=== PATIENT | male | born 1980 | race Caucasian/White ===

== ENCOUNTER 2021-03-26 12:34 | Inpatient (IN) ==
[2021-03-26] MEDS ORDERED: SODIUM CHLORIDE 0.9% 1000ML 2,000 ML IV ONE ×2 (12:56→14:37)
[2021-03-26] MEDS ORDERED: MoRPHine SULFATE 10 MG/ML CARP/VIAL IV STA (12:56)
[2021-03-26] MEDS ORDERED: ONDANSETRON INJ 2 MG/ML 2 ML VIAL IV STA (12:56)
--- NOTE | 2021-03-26 13:00 | Emergency Department Note ---
Impression & Plan Peritonitis, acute generalized, Perforated abdominal viscus, Diverticulitis, Small bowel obstruction, Abdominal pain, Sepsis ED Provider Note NAME: VICTOR HUGO PINO AGE: 40 SEX: M : 1980 ARRIVES VIA: Walk-In INFORMANT: Patient ED PROVIDER(S): Phani Mcmullen DO CHIEF COMPLAINT: Right lower quadrant abdominal pain HPI: Patient is a 40-year-old male who presents ER for right lower quadrant abdominal pain. Patient notes that this started this morning. Describes the pain as a 10 out of 10 sharp stabbing. He admits to urinary frequency and dysuria. History of a previous abdominal hernia repair about 10 years ago. Still has gallbladder and appendix. No history of kidney stones. No other exacerbating or remitting factors. Notes the pain will improve slightly down to a 9 out of 10 but otherwise still very persistent. Denies any chest pain or sh ortness of breath. No cough or runny nose. ROS: See above HPI for pertinent positives & negatives. A total of 10 systems reviewed and were otherwise negative. PAST MEDICAL HISTORY:See Below PAST SURGICAL HISTORY:See Below FAMILY HISTORY:See Below SOCIAL HISTORY:See Below HOME MEDICATIONS:See Below ALLERGIES:See Below VITALS:See Below PHYSICAL EXAMINATION: GENERAL: Sitting up in bed, alert, well appearing, well nourished, no distress, non-toxic EYE EXAM: normal conjunctiva. OROPHARYNX: no exudate, no erythema, lips, buccal mucosa, and tongue normal and mucous membranes are moist NECK: supple, no nuchal rigidity, no adenopathy, non-tender LUNGS: Clear to auscultation. Normal chest wall mechanics HEART: no murmurs, S1 normal and S2 normal ABDOMEN: abdomen soft, tenderness in the right lower quadrant, + rebound or guarding. UPPER EXTREMITIES: upper extremities are grossly normal. LOWER EXTREMITIES: No pitting edema. NEURO EXAM: Normal sensorium, cranial nerves II-XII grossly intact, normal speech, no gross weakness of arms, no gross weakness of legs. MEDICAL DECISION MAKING: Patient is a 40-year-old male who presents the ER for abdominal pain. IV was established blood work was obtained. Labs show a leukocytosis of 14,000. No significant anemia. BMP with slightly elevated glucose. LFTs and lipase is unremarkable. Covid was negative. CT abdomen pelvis shows free air/pneumoperitoneum with significant stranding and inflammation in the right lower quadrant. There is questionable abscess and small bowel obstruction. Patient was given IV fluids and IV antibiotics. He was updated bedside. He was given IV narcotics. Discussed with general surgery and taken emergently to the OR. He eventually did have a fever which presented later after admission. Triage Nursing notes reviewed. Limited review of prior medical records performed Vital Signs: reviewed and remarkable for no significant abnormalities Differential diagnosis: Differential diagnoses includes but is not limited to gastritis, peptic ulcer disease, GERD, gallbladder disease, pancreatitis, small bowel obstruction, acute coronary syndrome, pericarditis, ischemic bowel, irritable bowel disease, irritable bowel syndrome, appendicitis, diverticulitis, malignancy, hernia, urinary tract infection, torsion, perforation, trauma, infectious. ER treatment provided: See below Diagnostics interpreted by me: ECG: none Cardiac Monitoring: An order was placed for continuous cardiac monitoring. The monitor shows a rate of 123 with sinus rhythm. Laboratory studies: As stated above and show below. Imaging studies: Perforated abdominal viscus on CT Consultation(s): Discussed with Dr. Campbell from general surgery who took the patient to the OR Procedures: none Critical Care: I have personally spent 40 minutes of critical care time in the direct management of this patient. This includes bedside care, interpretation of diagnostic studies, and testing, discussion with consultants, patient, and f amily members, and other required patient management activities. This 40 minutes is in excess of all separately billable procedures. Past Med/Surg History Medical History (Updated 03/26/21 @ 17:06 by Phani Mcmullen DO) Hyperlipidemia Hypertension Surgical History S/P gastric bypass S/P hernia repair Family History Father Diabetes Mother Hypertension Social History Smoking Status: Never smoker Hx Alcohol Use: Yes Preferred Language: Salvadorean marital status: current occupational status: employed Feels Safe at Home: Yes Allergies Allergies Allergy/AdvReac Type Severity Reaction Status Date / Time No Known Allergies Allergy Verified 03/26/21 14:15 Home Meds Home Medications Medication Instructions Recorded Confirmed acetaminophen [Tylenol Extra 2,000 mg PO Q6 PRN 03/26/21 03/26/21 Strength] rosuvastatin 10 mg PO DAILY 03/26/21 03/26/21 Results & Data (ED) Vital Signs Vital Signs - 24 hr 03/26/21 12:36 03/26/21 13:22 03/26/21 13:30 Temperature 36.4 C L Temperature Source Temporal Artery Scan Pulse Rate 100 H 102 H 101 H Pulse Rate [Left Finger] Pulse Rate from SpO2 Sensor 102 H 101 H Pulse Rhythm [Left Finger] Pulse Strength [Left Finger] Respiratory Rate 20 28 H 26 H Respiratory Effort / Characteristics Respiratory Depth Respiratory Pattern Blood Pressure 114/78 124/81 128/88 Blood Pressure [Left Arm] Blood Pressure Mean 90 95 101 Blood Pressure Mean [Left Arm] Blood Pressure Position Sitting Blood Pressure Position [Left Arm] Pulse Oximetry 97 96 94 Oxygen Delivery Method Room Air Room Air Room Air Sepsis Recent Fever Within 48 Hours No Sepsis New/Unexplained Change in Mental Status No Sepsis Action Taken by Nursing No Action Required 03/26/21 14:31 03/26/21 14:32 03/26/21 15:00 Temperature Temperature Source Pulse Rate Pulse Rate [Left Finger] Pulse Rate from SpO2 Sensor 113 H 113 H 117 H Pulse Rhythm [Left Finger] Pulse Strength [Left Finger] Respiratory Rate 24 Respiratory Effort / Characteristics Respiratory Depth Respiratory Pattern Blood Pressure 138/82 Blood Pressure [Left Arm] Blood Pressure Mean 100 Blood Pressure Mean [Left Arm] Blood Pressure Position Blood Pressure Position [Left Arm] Pulse Oximetry 95 95 97 Oxygen Delivery Method Room Air Sepsis Recent Fever Within 48 Hours Sepsis New/Unexplained Change in Mental Status Sepsis Action Taken by Nursing 03/26/21 15:01 03/26/21 15:02 03/26/21 15:30 Temperature Temperature Source Pulse Rate 113 H Pulse Rate [Left Finger] Pulse Rate from SpO2 Sensor 118 H 117 H Pulse Rhythm [Left Finger] Pulse Strength [Left Finger] Respiratory Rate 24 Respiratory Effort / Characteristics Respiratory Depth Respiratory Pattern Blood Pressure 136/84 131/89 Blood Pressure [Left Arm] Blood Pressure Mean 101 103 Blood Pressure Mean [Left Arm] Blood Pressure Position Blood Pressure Position [Left Arm] Pulse Oximetry 97 97 Oxygen Delivery Method Sepsis Recent Fever Within 48 Hours Sepsis New/Unexplained Change in Mental Status Sepsis Action Taken by Nursing 03/26/21 15:31 03/26/21 16:00 03/26/21 16:11 Temperature 39.1 C H Temperature Source Oral Pulse Rate 113 H Pulse Rate [Left Finger] 118 H Pulse Rate from SpO2 Sensor Pulse Rhythm [Left Finger] Regular Pulse Strength [Left Finger] Normal Respiratory Rate 35 H 20 Respiratory Effort / Characteristics Non-Labored Spontaneous Respiratory Depth Normal Respiratory Pattern Regular Blood Pressure 131/93 Blood Pressure [Left Arm] 139/90 Blood Pressure Mean 105 Blood Pressure Mean [Left Arm] 106 Blood Pressure Position Blood Pressure Position [Left Arm] Lying Pulse Oximetry 94 Oxygen Delivery Method Room Air Sepsis Recent Fever Within 48 Hours Sepsis New/Unexplained Change in Mental Status Sepsis Action Taken by Nursing Laboratory Data Result diagrams: 03/26/21 13:15 03/26/21 13:15 Lab Results 03/26/21 03/26/21 03/26/21 Range/Units 13:15 13:15 14:45 WBC 14.23 H (4.8-10.8) K/uL RBC 5.02 (4.7-6.1) M/uL Hgb 14.8 (14.0-18.0) g/dL Hct 44.8 (42-52) % MCV 89.2 (80-100) fL MCH 29.5 (25-34) pg MCHC 33.0 (32-36) g/dL RDW Std Deviation 45.5 (36.4-46.3) fL RDW Coeff of Hans 13.9 (11.5-14.5) % Plt Count 391 (130-400) K/uL MPV 10.1 (7.4-10.4) fL Immature Gran % (Auto) 0.1 % Neut % (Auto) 75.4 % Lymph % (Auto) 21.2 % [place] % (Auto) 2.9 % Eos % (Auto) 0.2 % Baso % (Auto) 0.2 % Neut # (Auto) 10.72 H (1.4-6.5) K/uL Lymph # (Auto) 3.02 (1.2-3.4) K/uL [place] # (Auto) 0.41 (0.11-0.59) K/uL Eos # (Auto) 0.03 (0-0.5) K/uL Baso # (Auto) 0.03 (0-0.2) K/uL Immature Gran # (Auto) 0.02 (0.00-0.02) K/uL Sodium 137 (136-145) mmol/L Potassium 4.6 (3.5-5.1) mmol/L Chloride 104 (98-107) mmol/L Carbon Dioxide 23 (21-32) mmol/L Anion Gap 10.0 (3-11) BUN 16 (7-18) mg/dl Creatinine 1.04 (0.6-1.4) mg/dl Est Cr Clr Drug Dosing 123.0 ml/min Est GFR ( Amer) 104.3 ml/min Est GFR (Non-Af Amer) 90.0 ml/min BUN/Creatinine Ratio 15.1 (10-20) Glucose 164 H (70-99) mg/dl Calcium 9.3 (8.5-10.1) mg/dl Total Bilirubin 1.0 (0.2-1) mg/dl AST 21 (15-37) U/L ALT 36 (12-78) U/L Alkaline Phosphatase 70 (45-117) U/L Total Protein 8.1 (6.4-8.2) gm/dl Albumin 3.5 (3.4-5.0) gm/dl Globulin 4.6 H (2.5-4.0) gm/dl Albumin/Globulin Ratio 0.8 L (0.9-2) Lipase 87 (73-393) U/L COVID-19 Eval Order Covid19 at [facility] SARS-CoV-2 (PCR) (Negative) 03/26/21 Range/Units 14:45 WBC (4.8-10.8) K/uL RBC (4.7-6.1) M/uL Hgb (14.0-18.0) g/dL Hct (42-52) % MCV (80-100) fL MCH (25-34) pg MCHC (32-36) g/dL RDW Std Deviation (36.4-46.3) fL RDW Coeff of Hans (11.5-14.5) % Plt Count (130-400) K/uL MPV (7.4-10.4) fL Immature Gran % (Auto) % Neut % (Auto) % Lymph % (Auto) % [place] % (Auto) % Eos % (Auto) % Baso % (Auto) % Neut # (Auto) (1.4-6.5) K/uL Lymph # (Auto) (1.2-3.4) K/uL [place] # (Auto) (0.11-0.59) K/uL Eos # (Auto) (0-0.5) K/uL Baso # (Auto) (0-0.2) K/uL Immature Gran # (Auto) (0.00-0.02) K/uL Sodium (136-145) mmol/L Potassium (3.5-5.1) mmol/L Chloride (98-107) mmol/L Carbon Dioxide (21-32) mmol/L Anion Gap (3-11) BUN (7-18) mg/dl Creatinine (0.6-1.4) mg/dl Est Cr Clr Drug Dosing ml/min Est GFR ( Amer) ml/min Est GFR (Non-Af Amer) ml/min BUN/Creatinine Ratio (10-20) Glucose (70-99) mg/dl Calcium (8.5-10.1) mg/dl Total Bilirubin (0.2-1) mg/dl AST (15-37) U/L ALT (12-78) U/L Alkaline Phosphatase (45-117) U/L Total Protein (6.4-8.2) gm/dl Albumin (3.4-5.0) gm/dl Globulin (2.5-4.0) gm/dl Albumin/Globulin Ratio (0.9-2) Lipase (73-393) U/L COVID-19 Eval Order SARS-CoV-2 (PCR) NEGATIVE (Negative) Administered Medications Miscellaneous Information (Piperacill/Tazobac Consult Active) 1 ea N/A UD PRN PRN Reason: Consult Stop: 04/25/21 14:36 Last Admin: 03/26/21 15:19 Dose: 1 ea Documented by: [id number] Discontinued Medications Sodium Chloride (Nss 1000ml) 2,000 mls @ 999 mls/hr IV .Q2H1M ONE Stop: 03/26/21 14:56 Last Infusion: 03/26/21 16:05 Dose: 999 mls/hr Documented by: [id number] Admin: 03/26/21 13:19 Dose: 999 mls/hr Documented by: [id number] Sodium Chloride (Nss 1000ml) 2,000 mls @ 999 mls/hr IV .Q2H1M ONE Stop: 03/26/21 16:37 Last Admin: 03/26/21 15:17 Dose: 999 mls/hr Documented by: [id number] Piperacillin Sod/Tazobactam Sod (Zosyn) 4.5 gm in 120 mls @ 240 mls/hr IV NOW ONE Stop: 03/26/21 15:06 Last Infusion: 03/26/21 16:05 Dose: 240 mls/hr Documented by: [id number] Admin: 03/26/21 15:17 Dose: 240 mls/hr Documented by: [id number] Morphine Sulfate (Morphine Sulfate 10 Mg/Ml Carp/Vial) 6 mg IV NOW STA Stop: 03/26/21 12:57 Last Admin: 03/26/21 13:19 Dose: 6 mg Documented by: [id number] Morphine Sulfate (Morphine Sulfate 4 Mg/Ml 1 Ml Carp\Vial) 4 mg IV NOW STA Stop: 03/26/21 14:41 Last Admin: 03/26/21 15:16 Dose: 4 mg Documented by: [id number] Ondansetron HCl (Ondansetron Inj 2 Mg/Ml 2 Ml Vial) 4 mg IV NOW STA Stop: 03/26/21 12:57 Last Admin: 03/26/21 13:19 Dose: 4 mg Documented by: [id number] Imaging Data Radiologist's Impression: Abdomen/Pelvis CT 03/26/21 12:[address] WITHOUT CONTRAST CT DOSE: 1874.77 mGy.cm HISTORY: r flank pain TECHNIQUE: Multiaxial CT images of the abdomen and pelvis were performed without contrast. A dose lowering technique was utilized adhering to the principles of ALARA. COMPARISON STUDY: None. FINDINGS: The lung bases are clear. There or small scattered foci of free air seen within the abdomen and pelvis. There is a small abscess and fat stranding seen within the right lower quadrant. This abscess measures approximately 2.9 cm and is best seen on image 472. There is pericolonic fat stranding with mild colonic wall thickening at the mid sigmoid colon. Therefore, this favors a perforated acute diverticulitis. There is also inflammatory change and a small amount of fluid surrounding a distal ileal loop within the right lower quadrant best seen on image 428. Possible visualization of the appendix posterior to the cecum which appears normal in caliber. This is best seen on image 307 through 331. However, this could represent a small vessel rather than a normal appendix. Of note, the loculated fluid within the right lower quadrant is also seen inferior to the cecal base on image 419 and measures 2.7 cm. Although considered less likely, a perforated acute appendicitis could also result in this appearance. Therefore, surgical consultation recommended. Small amount pelvic fluid. Mild dilated gas-filled loops of mid small bowel are identified. Therefore, this could represent a partial small bowel obstruction with the transition point located on image 428 at the thickened ileal loops traversing through the inflammatory process within the right lower quadrant. The bladder is unremarkable. Postoperative changes consistent with prior gastric bypass. Hepatic steatosis. The unenhanced spleen is at the upper limits of normal. The unenhanced adrenal glands, pancreas, gallbladder are unremarkable. No renal stones or hydronephrosis. A 1.5 cm hypodense lesion within the right kidney. This is incompletely characters on this noncontrast study but statistically represents a cyst. Normal caliber abdominal aorta. No retroperitoneal lymphadenopathy. Prior mesh repair of an umbilical hernia. IMPRESSION: 1. Scattered pneumoperitoneum with a 2.9 cm right lower quadrant abscess. There is pericolonic fat stranding with mild colonic wall thickening at the mid sigmoid colon. Therefore, this favors a perforated acute diverticulitis. 2. Possible visualization of the appendix posterior to the cecum which appears normal in caliber. However, this could represent a small vessel rather than a normal appendix. Of note, a loculated fluid collection is also seen within the right lower quadrant inferior to the cecal base and measures 2.7 cm. Although considered less likely, a perforated acute appendicitis could also result in this appearance. Therefore, surgical consultation recommended. 3. Mildly dilated gas-filled loops of mid small bowel are identified. Therefore, this could represent a partial small bowel obstruction with the transition point located at the thickened ileal loops traversing through the inflammatory process within the right lower quadrant. 4. Prior gastric bypass. 5. Additional findings as described above. ACT 112: Negative or not required by law. Electronically signed by: Ifeanyi Wall M.D. 03/26/2021 2:36 PM Discharge Plan Visit Data Chief Complaint: Abdominal Pain Stated Complaint: RIGHT ABDOMINAL SEVERE PAIN ED Provider: Phani Mcmullen Discharge Problem: Peritonitis, acute generalized, Perforated abdominal viscus, Diverticulitis, Sm all bowel obstruction, Abdominal pain, Sepsis Discharge Instructions Interventions: ED Discharge Assessment Last Done: 03/26/21 16:04 Discharge Problem: Abdominal pain Qualifiers: Abdominal location: unspecified location Qualified Code(s): R10.9 - Unspecified abdominal pain Sepsis Qualifiers: Sepsis type: sepsis due to unspecified organism Sepsis acute organ dysfunction status: unspecified Qualified Code(s): A41.9 - Sepsis, unspecified organism
[2021-03-26 13:22] LABS: Basophils # (auto) 0.03 K/uL (0-0.2); Basophils % (auto) 0.2 %; Eosinophils # (auto) 0.03 K/uL (0-0.5); Eosinophils % (auto) 0.2 %; Hematocrit (blood only) 44.8 % (42-52); Hemoglobin 14.8 g/dL (14.0-18.0); Immature Granulocytes # (auto) 0.02 K/uL (0.00-0.02); Immature Granulocytes % (auto) 0.1 %; Lymphocytes # (auto) 3.02 K/uL (1.2-3.4); Lymphocytes % (auto) 21.2 %; Mean Corpuscular Hemoglobin 29.5 pg (25-34); Mean Corpuscular Volume 89.2 fL (80-100); Mean Platelet Volume 10.1 fL (7.4-10.4); Monocytes # (auto) 0.41 K/uL (0.11-0.59); Monocytes % (auto) 2.9 %; Neutrophils # (auto) 10.72 K/uL (1.4-6.5); Neutrophils % (auto) 75.4 %; Platelet Count 391 K/uL (130-400); RDW Coefficient of Variation 13.9 % (11.5-14.5); RDW Standard Deviation 45.5 fL (36.4-46.3); Red Blood Count 5.02 M/uL (4.7-6.1); White Blood Count 14.23 K/uL (4.8-10.8)
[2021-03-26 13:47] LABS: Albumin Level 3.5 gm/dl (3.4-5.0); BUN Creatinine Ratio 15.1 (10-20); Calcium 9.3 mg/dl (8.5-10.1); Est GFR (African American) 104.3 ml/min; Potassium 4.6 mmol/L (3.5-5.1)
[2021-03-26 13:49] LABS: Albumin Globulin Ratio 0.8 (0.9-2); Globulin 4.6 gm/dl (2.5-4.0); Total Protein 8.1 gm/dl (6.4-8.2)
[2021-03-26] MEDS ORDERED: PIPERACILL/TAZOBAC CONSULT ACTIVE PRN ×2 (14:37→22:25)
[2021-03-26] MEDS ORDERED: PIPERACILLIN/TAZOBACTAM 4.5 GM in DEXTROSE 5% 100 ML IV ONE ×2 (14:37→23:15)
[2021-03-26] MEDS ORDERED: PIPERACILLIN/TAZOBACTAM 4.5 GM/120 ML BAG IV ONE (14:37)
--- NOTE | 2021-03-26 14:38 | CT Scan Report ---
ABDOMEN AND PELVIS CT WITHOUT CONTRAST CT DOSE: 1874.77 mGy.cm HISTORY: r flank pain TECHNIQUE: Multiaxial CT images of the abdomen and pelvis were performed without contrast. A dose lo wering technique was utilized adhering to the principles of ALARA. COMPARISON STUDY: None. FINDINGS: The lung bases are clear. There or small scattered foci of free air seen within the abdomen and pelvis. There is a small abscess and fat stranding seen within the right lower quadrant. This ab scess measures approximately 2.9 cm and is best seen on image 472. There is pericolonic fat stranding with mild colonic wall thickening at the mid sigmoid colon. Therefore, this favors a perforated acut e diverticulitis. There is also inflammatory change and a small amount of fluid surrounding a distal ileal loop within the right lower quadrant best seen on image 428. Possible visualization of the appe ndix posterior to the cecum which appears normal in caliber. This is best seen on image 307 through 3 31. However, this could represent a small vessel rather than a normal appendix. Of note, the loculate d fluid within the right lower quadrant is also seen inferior to the cecal base on image 419 and eliseo ures 2.7 cm. Although considered less likely, a perforated acute appendicitis could also result in th is appearance. Therefore, surgical consultation recommended. Small amount pelvic fluid. Mild dilated gas-filled loops of mid small bowel are identified. Therefore, this could represent a partial small b owel obstruction with the transition point located on image 428 at the thickened ileal loops traversi ng through the inflammatory process within the right lower quadrant. The bladder is unremarkable. Pos toperative changes consistent with prior gastric bypass. Hepatic steatosis. The unenhanced spleen is at the upper limits of normal. The unenhanced adrenal glands, pancreas, gallbladder are unremarkable. No renal stones or hydronephrosis. A 1.5 cm hypodense lesion within the right kidney. This is incomp letely characters on this noncontrast study but statistically represents a cyst. Normal caliber abdom inal aorta. No retroperitoneal lymphadenopathy. Prior mesh repair of an umbilical hernia. IMPRESSION: 1. Scattered pneumoperitoneum with a 2.9 cm right lower quadrant abscess. There is pericolonic fat st randing with mild colonic wall thickening at the mid sigmoid colon. Therefore, this favors a perforat ed acute diverticulitis. 2. Possible visualization of the appendix posterior to the cecum which appears normal in caliber. How ever, this could represent a small vessel rather than a normal appendix. Of note, a loculated fluid c ollection is also seen within the right lower quadrant inferior to the cecal base and measures 2.7 cm . Although considered less likely, a perforated acute appendicitis could also result in this appearan ce. Therefore, surgical consultation recommended. 3. Mildly dilated gas-filled loops of mid small bowel are identified. Therefore, this could represent a partial small bowel obstruction with the transition point located at the thickened ileal loops tra versing through the inflammatory process within the right lower quadrant. 4. Prior gastric bypass. 5. Additional findings as described above. ACT 112: Negative or not required by law. Electronically signed by: Ifeanyi Wall M.D. 03/26/2021 2:36 PM
[2021-03-26] MEDS ORDERED: MoRPHine SULFATE 4 MG/ML 1 ML CARP\\VIAL IV STA (14:40)
--- NOTE | 2021-03-26 15:36 | Anesthesiology Consultation ---
Date of Service March 26, 2021 Assessment & Plan Chart Review Chart Review: Acceptable Risk for Surgery and Patient NOT seen in Pre Admission Testing Consults Requested none ASA [id number] Proposed Anesthesia Anesthesia Type: General History Surgery Operation Date: 03/26/21 11:55 Proposed Procedures p Diagnostic Laparoscopic Possible Appendectomy Possible Bowel Resection - C fabian Campbell MD Height/Weight Height: 5 ft 9 in Weight: 121.9 kg Allergies Allergy/AdvReac Type Severity Reaction Status Date / Time No Known Allergies Allergy Verified 03/26/21 14:15 Medications Home Medications Medication Instructions Recorded Confirmed Last Taken acetaminophen [Tylenol Extra 2,000 mg PO Q6 PRN 03/26/21 03/26/21 Unknown Strength] rosuvastatin 10 mg PO DAILY 03/26/21 03/26/21 Unknown Active Medications Generic Name Dose Route Start Last Admin Trade Name Freq PRN Reason Stop Dose Admin Sodium Chloride 2,000 mls @ 999 mls/hr 03/26/21 14:37 03/26/21 15:17 Nss 1000ml IV 03/26/21 16:37 999 mls/hr .Q2H1M ONE Administration Miscellaneous Information 1 ea 03/26/21 14:37 03/26/21 15:19 Piperacill/Tazobac Consult Active N/A 04/25/21 14:36 1 ea UD PRN Administration Consult Past Medical History Medical History Hyperlipidemia Hypertension Exercise / Class Metabolic Activity II 4-5 Yardwork/Stairs/Walk up hill Past Family History Family History Father Diabetes Mother Hypertension Past Surgical History Surgical History S/P gastric bypass S/P hernia repair Past Anesthesia History No Hx of Anesthesia Complications and No Family Hx of Anesthesia Complications History of PONV No Hx of PONV and No Hx of Motion Sickness Social History Smoking Status: Never smoker Hx Alcohol Use: Yes Physical Exam Vital Signs Last Vital Signs Temp 36.4 C L 03/26/21 12:36 Pulse 101 H 03/26/21 13:30 Resp 24 03/26/21 14:31 BP 136/84 03/26/21 15:01 Pulse Ox 97 03/26/21 15:01 Testing Laboratory Results 03/26/21 13:15 03/26/21 13:15
[2021-03-26] MEDS ORDERED: fentaNYL citrate 100 MCG/2 ML VIAL ONE ×4 (15:41→20:11)
[2021-03-26] MEDS ORDERED: MIDAZOLAM HCL 1 MG/ML 2ML VIAL ONE (15:41)
[2021-03-26] MEDS ORDERED: LIDOCAINE 1% LOCAL 20 ML VIAL ONE (15:59)
[2021-03-26] MEDS ORDERED: BACITRACIN OINT 15 GM TUBE ONE (15:59)
[2021-03-26] MEDS ORDERED: BUPIVACAINE 0.5 % 5 MG/1 ML MPF 30ML VIAL ONE (15:59)
--- NOTE | 2021-03-26 16:02 | Surgery Consultation ---
Date of Consultation March 26, 2021 Assessment & Plan (1) Peritonitis, acute generalized: pt is a 40 year-old male who presents wto ER with 2 weeks history RLQ pain, IMP: peritonitis, perforated abdominal viscus, , appendicitis, diverticulitis, intra-abdominal abscess, sepsis Plan, I recommend to do diagnostic laparoscopy, possible appendectomy, exploratory laparostomy, bowel resection, stoma, D/W benefits, risks and alternatives of the surgery, the risks - infection, bleeding, abscess, sepsis, multiple organs failure, injury other organs, bowel obstruction, DVT, , pt understood, he agrees with the surgery,He signed inform consent, I answered all questions, pre-op antibiotic, Present on Admission?: Yes (2) Perforated abdominal viscus: History of Present Illness History of Present Illness CHIEF COMPLAINT: Right lower quadrant abdominal pain HPI: Patient is a 40-year-old male who presents ER for right lower quadrant abdominal pain. Patient notes that this started this morning. Describes the pain as a 10 out of 10 sharp stabbing. He admits to urinary frequency and dysuria. History of a previous abdominal hernia repair about 10 years ago. Still has gallbladder and appendix. No history of kidney stones. No other exacerbating or remitting factors. Notes the pain will improve slightly down to a 9 out of 10 but otherwise still very persistent. Denies any chest pain or shortness of breath. No cough or runny nose. I ( Pablito Campbell MD ) got a call for consult perforated diverticulitis, I reviewed pt's H/P, labs, CT scan with, pt has been RLQ pain almost 2 weeks from now, this morning pt feels more RLQ pain, HR 101. and diarrhea this morning, ROS: See above HPI for pertinent positives & negatives. A total of 10 systems reviewed and were otherwise negative. PAST MEDICAL HISTORY: See Below PAST SURGICAL HISTORY: See Below FAMILY HISTORY: See Below SOCIAL HISTORY: See Below HOME MEDICATIONS: See Below ALLERGIES: See Below Allergies Allergy/AdvReac Type Severity Reaction Status Date / Time No Known Allergies Allergy Verified 03/26/21 14:15 Home Medications Medication Instructions Recorded Confirmed Type acetaminophen [Tylenol Extra 2,000 mg PO Q6 PRN 03/26/21 03/26/21 History Strength] rosuvastatin 10 mg PO DAILY 03/26/21 03/26/21 History Patient History Medical History (Updated 03/26/21 @ 16:04 by Pablito Campbell MD) Hyperlipidemia Hypertension Surgical History S/P gastric bypass S/P hernia repair Family History Father Diabetes Mother Hypertension Social History Smoking Status: Never smoker Hx Alcohol Use: Yes Preferred Language: Vietnamese marital status: current occupational status: employed Feels Safe at Home: Yes Review of Systems Review of Systems: All systems reviewed & are unremarkable except as noted in HPI & below Constitutional: as per Subjective / HPI Eyes: as per Subjective / HPI Ear, Nose, Mouth, Throat: as per Subjective / HPI Respiratory: as per Subjective / HPI Cardiovascular: as per Subjective / HPI Additional Comments: hyperlipidemia Gastrointestinal: as per Subjective / HPI gastric bypass Genitourinary: + as per Subjective / HPI Musculoskeletal: as per Subjective / HPI Integumentary: as per Subjective / HPI Neurologic: as per Subjective / HPI Psychiatric: as per Subjective / HPI Endocrine: as per Subjective / HPI Hematologic / Lymphatic: as per Subjective / HPI Allergy / Immunological: as per Subjective / HPI Physical Exam Constitutional: WD/WN, vitals as above well developed and well nourished Eyes: PERRL, conjunctivae normal, anicteric sclerae ENMT: external ear and nose normal, oropharynx normal Neck: trachea midline, no thyromegaly Respiratory: normal respiratory effort, lungs clear to auscultation normal respiratory effort Cardiovascular: RRR, no murmur, no edema Rate/Rhythm: regular rate, regular rhythm and + tachycardic Heart Sounds: normal S1 and normal S2 Gastrointestinal (Abdomen): Percussion/Palpation: + abdomen tender and abdomen soft diffuse tenderness at abdomen with rebound pain,most pain is located at RLQ, no distend, BS -, Musculoskeletal: no cyanosis or clubbing, extremities motor strength 5/5 Skin: no rashes, warm and dry Neurologic: awake Psychiatric: Orientation: alert and oriented x 3 Results & Data ([facility]) Vital Signs (Past 12 Hours) Vital Signs Temp Pulse Resp BP Pulse Ox 03/26/21 15:01 136/84 97 03/26/21 15:00 97 03/26/21 14:32 95 03/26/21 14:31 24 138/82 95 03/26/21 13:30 101 H 26 H 128/88 94 03/26/21 13:22 102 H 28 H 124/81 96 03/26/21 12:36 36.4 C L 100 H 20 114/78 97 Laboratory Results Abnormal lab results 03/26/21 03/26/21 Range/Units 13:15 13:15 WBC 14.23 H (4.8-10.8) K/uL Neut # (Auto) 10.72 H (1.4-6.5) K/uL Glucose 164 H (70-99) mg/dl Globulin 4.6 H (2.5-4.0) gm/dl Albumin/Globulin Ratio 0.8 L (0.9-2) Diagnostic Findings ABDOMEN AND PELVIS CT WITHOUT CONTRAST CT DOSE: 1874.77 mGy.cm HISTORY: r flank pain TECHNIQUE: Multiaxial CT images of the abdomen and pelvis were performed without contrast. A dose lowering technique was utilized adhering to the principles of ALARA. COMPARISON STUDY: None. FINDINGS: The lung bases are clear. There or small scattered foci of free air seen within the abdomen and pelvis. There is a small abscess and fat stranding seen within the right lower quadrant. This abscess measures approximately 2.9 cm and is best seen on image 472. There is pericolonic fat stranding with mild colonic wall thickening at the mid sigmoid colon. Therefore, this favors a perforated acute diverticulitis. There is also inflammatory change and a small amount of fluid surrounding a distal ileal loop within the right lower quadrant best seen on image 428. Possible visualization of the appendix posterior to the cecum which appears normal in caliber. This is best seen on image 307 through 331. However, this could represent a small vessel rather than a normal appendix. Of note, the loculated fluid within the right lower quadrant is also seen inferior to the cecal base on image 419 and measures 2.7 cm. Although considered less likely, a perforated acute appendicitis could also result in this appearance. Therefore, surgical consultation recommended. Small amount pelvic fluid. Mild dilated gas-filled loops of mid small bowel are identified. Therefore, this could represent a partial small bowel obstruction with the transition point located on image 428 at the thickened ileal loops traversing through the inflammatory process within the right lower quadrant. The bladder is unremarkable. Postoperative changes consistent with prior gastric bypass. Hepatic steatosis. The unenhanced spleen is at the upper limits of normal. The unenhanced adrenal glands, pancreas, gallbladder are unremarkable. No renal stones or hydronephrosis. A 1.5 cm hypodense lesion within the right kidney. This is incompletely characters on this noncontrast study but statistically represents a cyst. Normal caliber abdominal aorta. No retroperitoneal lymphadenopathy. Prior mesh repair of an umbilical hernia. IMPRESSION: 1. Scattered pneumoperitoneum with a 2.9 cm right lower quadrant abscess. There is pericolonic fat stranding with mild colonic wall thickening at the mid sigmoid colon. Therefore, this favors a perforated acute diverticulitis. 2. Possible visualization of the appendix posterior to the cecum which appears normal in caliber. However, this could represent a small vessel rather than a normal appendix. Of note, a loculated fluid collection is also seen within the right lower quadrant inferior to the cecal base and measures 2.7 cm. Although considered less likely, a perforated acute appendicitis could also result in this appearance. Therefore, surgical consultation recommended. 3. Mildly dilated gas-filled loops of mid small bowel are identified. Therefore, this could represent a partial small bowel obstruction with the transition point located at the thickened ileal loops traversing through the inflammatory process within the right lower quadrant. 4. Prior gastric bypass. 5. Additional findings as described above.
--- NOTE | 2021-03-26 16:10 | History & Physical Bridge Note ---
Date of Service March 26, 2021 History & Physical Bridge Note I have examined the patient, reviewed the History & Physical and in the interval since the performance of the History & Physical I have noted the following changes of clinical significance: no changes noted
[2021-03-26] MEDS ORDERED: GLYCOPYRROLATE 0.2 MG/ML VIAL ONE ×3 (17:36→20:04)
[2021-03-26] MEDS ORDERED: PROPOFOL IV EMULSION 10 MG/ML 20 ML VIAL IV ONE (17:36)
[2021-03-26] MEDS ORDERED: ONDANSETRON INJ 2 MG/ML 2 ML VIAL ONE (17:36)
[2021-03-26] MEDS ORDERED: DEXAMETHASONE SOD INJ 4 MG/ML VIAL ONE (17:36)
[2021-03-26] MEDS ORDERED: ROCURONIUM BROMIDE 10 MG/ML 5 ML VIAL IV ONE ×6 (17:36→19:12)
[2021-03-26] MEDS ORDERED: LIDOCAINE 2% 2 ML VIAL/AMP(20MG/ML) INFIL ONE (17:36)
[2021-03-26] MEDS ORDERED: SUCCINYLCHOLINE CHLORIDE 20 MG/ML 10 ML VIAL IV ONE (17:36)
[2021-03-26] MEDS ORDERED: NEOSTIGMINE METHYLSULFATE 1 MG/ML 10ML VIAL ONE (17:36)
[2021-03-26] MEDS ORDERED: ATROPINE SULFATE 0.1 MG/ML 10ML SYR IV PRN (17:41)
[2021-03-26] MEDS ORDERED: ONDANSETRON INJ 2 MG/ML 2 ML VIAL IV PRN (17:41)
[2021-03-26] MEDS ORDERED: HYDROmorphone INJ 1 MG/ML SYRINGE IV PRN (17:41)
[2021-03-26] MEDS ORDERED: NALOXONE HCL 0.4 MG/1 ML VIAL/CARP IV PRN (17:41)
[2021-03-26] MEDS ORDERED: PROMETHAZINE HCL 12.5 MG in SODIUM CHLORIDE 0.9% 50 ML IV PRN ×2 (17:41→23:49)
[2021-03-26] MEDS ORDERED: fentaNYL citrate 100 MCG/2 ML VIAL IV PRN (17:41)
[2021-03-26] MEDS ORDERED: ePHEDrine sulfate 50 MG/ML AMP IV PRN (17:41)
[2021-03-26] MEDS ORDERED: LABETALOL HCL IV 5 MG/ML 20ML IV PRN (17:41)
[2021-03-26] MEDS ORDERED: FLUMAZENIL 0.1 MG/1 ML 10 ML VIAL IV PRN (17:41)
[2021-03-26] MEDS ORDERED: HYDROmorphone INJ 2 MG/ML SYR/VIAL ONE (18:25)
[2021-03-26] MEDS ORDERED: ACETAMINOPHEN 1000 MG/100 ML IV IV ONE (19:04)
[2021-03-26] MEDS ORDERED: VANCOMYCIN HCL 1000MG/20ML VIAL ONE (19:57)
--- NOTE | 2021-03-26 21:23 | Post Operative Brief Note ---
Immediate Post Op Note v1 Date of Surgery March 26, 2021 Pre & Post Diagnosis Operation Date: 03/26/21 11:55 Pre-Op Diagnosis: Peritonitis, acute generalized, perforated bowel,sepsis Post-Op Diagnosis: Peritonitis, acute generalized, intra-abdominal abscess, acute appendicitis, perforated sigmoid diverticulitis, sepsis I identified the patient and participated in the time-out.: Yes Procedure Operation Date: 03/26/21 11:55 Actual Procedures p Diagnostic Laparoscopy, Converted to Exploratory Laparotomy, Appendectomy, Sigmoid colon Resection, Colostomy Creation, FLOWER Drain Insertion x2(Not Applicable) - Pablito Campbell MD Surgeon Pablito Campbell MD Senior Boiler Operator surgical sales representative Estimated Blood Loss 30 Findings Consistent with Post-Op Diagnosis peritonitis, perforated sigmoid colon with diverticulitis,severe contamination, intra-abdominal abscess, acute appendicitis, Fluids 3500ml Specimens appendix, sigmoid colon Drains Levy Catheter (leyv catheter to be monitored by anesthesia during surgery), Sathish-De Jesus Drain (10fr flat drain x2, RLQ) and Other (Colostomy pouch) Anesthesia Type General Complications none Disposition Accompanied Patient To Recovery: Yes Disposition: Surgical ICU Overlapping Procedure I was immediately available: during the entire case.
--- NOTE | 2021-03-26 21:34 | XRay Report ---
KUB CLINICAL HISTORY: Intraoperative image. Incorrect surgical instrument count. FINDINGS: An AP, portable, supine abdominal radiograph is correlated with abdominal CT performed the same day 03/26/2021. There is a nonobstructed abdominal bowel gas pattern. A large metallic clip proje cts over the left upper quadrant. Numerous surgical clips are seen in the left midabdomen. There is n o radiographic evidence of retained surgical implement. Midline skin clips are noted. A surgical drai n is seen in the right lower quadrant. IMPRESSION: 1. There is no radiographic evidence of retained surgical implement. 2. Postoperative findings as above. Electronically signed by: Satinder Allen M.D. 03/26/2021 9:32 PM
--- NOTE | 2021-03-26 22:22 | Critical Care Consultation ---
Date of Consultation March 26, 2021 Assessment & Plan (1) Sepsis: Impression: 40-year-old female presents to the ICU following ex lap with appendectomy, sigmoid colon resection, and colostomy creation for intra- abdominal abscess, acute appendicitis, and perforated sigmoid diverticulitis with concerns for developing sepsis/peritonitis. Neuro - [facility] ICU: Negative Pain managementDilaudid Cardiac - Currently hemodynamically stable without use of vasopressors and normal sinus rhythm on monitor -Monitor closely in the ICU tonight as patient high risk for development of septic shock given severity of surgical finding -Continuous monitoring on telemetry HLDcontinue statin when taking p.o. Respiratory - Currently maintaining oxygen saturation on 6 L oxygen mask, no prior history of pulmonary disease, no respiratory distress and lungs clear to auscultation Weaning oxygen as tolerated Continuous monitoring pulse ox GI - Acute appendicitis/perforated sigmoid diverticulitiss/p diagnostic laparoscopy converted to exploratory laparotomy with appendectomy, sigmoid colon resection, colostomy creation, and FLOWER drain x2 -Management per surgical team, will follow recommendation -CT abdomen findings as described above -N.p.o., OG tube to intermittent low wall suction -See sepsis treatment below -Monitor RENAL/LYTES - Creatinine within normal limits and no severe electrolyte abnormalities, monitor routine BMPs Continue IV fluid resuscitation, LR at 125 - Foleystrict I's and O's ENDO - No history of diabetes or thyroid disease ICU hyperglycemic protocol HEME - H&H stable, EBL 30, monitor routine CBCs and transfuse if indicated ID - Sepsispatient febrile with leukocytosis following perforated sigmoid diverticulitis/acute appendicitis -Pro-Andrew and lactate pending -Abdominal cultures pending -COVID-19 negative -Continue Zosyn LINES/IV ACCESS - Peripheral IVs DVT PROPHYLAXIS - SCDs, hold anticoagulation following surgery Thank you for allowing us to participate in the care of this patient. Please refer to my attending physician's documentation for any further recommendations. (2) Perforated abdominal viscus: (3) Peritonitis, acute generalized: (4) Hyperlipidemia: (5) Abdominal pain: (6) Small bowel obstruction: (7) Diverticulitis: History of Present Illness Attending Physician: Pablito Campbell MD History of Present Illness Patient is a 40-year-old male with PMH HLD who presented to the emergency department with complaints of 2-week right lower quadrant abdominal pain. Patient stated pain was 10 out of 10 sharp stabbing pain and persistent. LFTs and lipase were unremarkable but patient did have leukocytosis of 14,000. CT abdomen pelvis showed free air/pneumoperitoneum with significant stranding and inflammation in the right lower quadrant. Questionable for abscess and small bowel obstruction. Patient became febrile in the ER. He was taken emergently to the OR where he was found to have intra-abdominal abscess, acute appendicitis, and perforated sigmoid diverticulitis. In the OR patient underwent diagnostic laparoscopic, converted to ex lap with appendectomy, sigmoid colon resection, colostomy creation, and FLOWER drain x2. Patient now being transferred to ICU for close monitoring following surgery as he is high risk for developing septic shock. In the ICU the patient is alert and oriented and appears comfortable at rest on 6 L oxygen mask and hemodynamically stable without vasopressors. He currently denies headache, dizziness, nausea or vomiting, recent illness, sore throat or cough, shortness of breath, chest pain or palpitations, swelling in hands or feet, diarrhea. Patient does state that he still has some mild right lower quadrant abdominal pain which is tender to light palpation. He has no other complaints at this time. Allergies Allergy/AdvReac Type Severity Reaction Status Date / Time No Known Allergies Allergy Verified 03/26/21 14:15 Home Medications Medication Instructions Recorded Confirmed Type acetaminophen [Tylenol Extra 2,000 mg PO Q6 PRN 03/26/21 03/26/21 History Strength] rosuvastatin 10 mg PO DAILY 03/26/21 03/26/21 History Patient History Medical History (Updated 03/26/21 @ 17:06 by Phani Mcmullen DO) Hyperlipidemia Hypertension Surgical History S/P gastric bypass S/P hernia repair Family History Father Diabetes Mother Hypertension Social History Smoking Status: Never smoker Second Hand Exposure: No; Do You Dip or Chew Tobacco: No; Tobacco Cessation Education Requested by Patient: No Hx Alcohol Use: Yes Alcohol type: wine Hx Substance Use: No Preferred Language: Mohawk Communication Ability: Effective Rough Carpenter Required: No Beliefs That Will Affect Care: None marital status: Current Living Situation: Spouse current occupational status: employed Other Information That Helps Us Care for You: No Feels Safe at Home: Yes Safety Concerns: Feels Safe At This Time Assistive Devices: None Review of Systems Review of Systems: All systems reviewed & are unremarkable except as noted in HPI & below Physical Exam Constitutional: cooperative and comfortable Eyes: PERRL, conjunctivae normal, anicteric sclerae ENMT: external ear and nose normal, oropharynx normal Neck: trachea midline, no thyromegaly Respiratory: normal respiratory effort, lungs clear to auscultation Cardiovascular: RRR, no murmur, no edema Heart Sounds: normal S1 and normal S2 Vessels: no JVD Extremities: normal capillary refill; no edema Gastrointestinal (Abdomen): Abdomen distended but soft, right lower quadrant tenderness to light palpation, midline surgical incision appears patent, FLOWER drain x2 with serosanguineous drainage, colostomy appears red without evidence of ischemia Musculoskeletal: no cyanosis or clubbing, extremities motor strength 5/5 Skin: no rashes, warm and dry Neurologic: PERRL, EOMI, accommodation nl, no face palsy, no dysarthria Psychiatric: A+Ox3, euthymic affect Genitourinary: Indwelling Bell catheter Results & Data Results & Data ([facility]) Vital Signs (Past 12 Hours) Vital Signs Temp Pulse Pulse Pulse Resp BP BP 03/26/21 22:00 101 H 22 03/26/21 21:45 38.6 C H 110 H 18 03/26/21 16:11 39.1 C H 118 H 20 139/90 03/26/21 16:00 131/93 03/26/21 15:31 113 H 35 H 03/26/21 15:30 113 H 24 131/89 03/26/21 15:02 03/26/21 15:01 136/84 03/26/21 15:00 03/26/21 14:32 03/26/21 14:31 24 138/82 03/26/21 13:30 101 H 26 H 128/88 03/26/21 13:22 102 H 28 H 124/81 03/26/21 12:36 36.4 C L 100 H 20 114/78 BP Pulse Ox 03/26/21 22:00 115/82 95 03/26/21 21:45 129/84 95 03/26/21 16:11 94 03/26/21 16:00 03/26/21 15:31 03/26/21 15:30 03/26/21 15:02 97 03/26/21 15:01 97 03/26/21 15:00 97 03/26/21 14:32 95 03/26/21 14:31 95 03/26/21 13:30 94 03/26/21 13:22 96 03/26/21 12:36 97 Coding Level of Care Code 43172 Inpt Consult Level 3 Diagnoses Sepsis A41.9 Sepsis acute organ dysfunction status: unspecified Sepsis type: sepsis due to unspecified organism Perforated abdominal viscus R19.8 Peritonitis, acute generalized K65.0 Hyperlipidemia E78.5 Abdominal pain R10.9 Abdominal location: unspecified location Small bowel obstruction K56.609 Diverticulitis K57.92 (1) Sepsis Sepsis acute organ dysfunction status: unspecified Sepsis type: sepsis due to unspecified organism Qualified Code(s): A41.9 - Sepsis, unspecified organism (2) Abdominal pain Abdominal location: unspecified location Qualified Code(s): R10.9 - Unspecified abdominal pain
[2021-03-26] MEDS ORDERED: VANCOMYCIN CONSULT ACTIVE PRN (22:25)
[2021-03-26] MEDS ORDERED: LACTATED RINGER'S 1,000 ML IV SCH (22:25)
--- NOTE | 2021-03-26 22:35 | Anesthesiology Progress Note ---
Date of Service March 26, 2021 Anesthesia Post Procedure Vital Signs Vital Signs: Temp Pulse Pulse Pulse Resp BP BP 03/26/21 22:20 37.6 C H 101 H 20 03/26/21 22:10 105 H 21 03/26/21 22:00 101 H 22 03/26/21 21:45 38.6 C H 110 H 18 03/26/21 16:11 39.1 C H 118 H 20 139/90 03/26/21 16:00 131/93 03/26/21 15:31 113 H 35 H 03/26/21 15:30 113 H 24 131/89 03/26/21 15:02 03/26/21 15:01 136/84 03/26/21 15:00 03/26/21 14:32 03/26/21 14:31 24 138/82 03/26/21 13:30 101 H 26 H 128/88 03/26/21 13:22 102 H 28 H 124/81 03/26/21 12:36 36.4 C L 100 H 20 114/78 BP Pulse Ox 03/26/21 22:20 135/78 95 03/26/21 22:10 131/76 95 03/26/21 22:00 115/82 95 03/26/21 21:45 129/84 95 03/26/21 16:11 94 03/26/21 16:00 03/26/21 15:31 03/26/21 15:30 03/26/21 15:02 97 03/26/21 15:01 97 03/26/21 15:00 97 03/26/21 14:32 95 03/26/21 14:31 95 03/26/21 13:30 94 03/26/21 13:22 96 03/26/21 12:36 97 Pain Intensity Abdomen: Pain Intensity: 7 Transfer of Care Handoff Completed per policy Notes Mental Status: alert / awake / arousable and participated in evaluation Patient Amnestic to Procedure: Yes Nausea / Vomiting: adequately controlled Pain: adequately controlled Airway Patency, RR, SpO2: stable & adequate BP & HR: stable & adequate Hydration State: stable & adequate Anesthetic Complications: no major complications apparent and Pt Satisfied with anesthetic care
[2021-03-26 23:10] LABS: Hematocrit (blood only) 43.2 % (42-52); Hemoglobin 14.1 g/dL (14.0-18.0); Mean Corpuscular Hemoglobin 29.1 pg (25-34); Mean Corpuscular Hgb Conc 32.6 g/dL (32-36); Mean Corpuscular Volume 89.1 fL (80-100); Mean Platelet Volume 10.1 fL (7.4-10.4); Platelet Count 341 K/uL (130-400); RDW Coefficient of Variation 13.9 % (11.5-14.5); RDW Standard Deviation 46.1 fL (36.4-46.3); Red Blood Count 4.85 M/uL (4.7-6.1); White Blood Count 13.45 K/uL (4.8-10.8)
[2021-03-26] MEDS ORDERED: VANCOMYCIN HCL 1,750 MG in SODIUM CHLORIDE 0.9% 500 ML IV ONE (23:15)
[2021-03-26 23:21] LABS: INR 1.1 (0.9-1.1); Prothrombin Time 11.5 Seconds (9.0-12.0)
--- NOTE | 2021-03-26 23:22 | Hospitalist Consultation ---
Date of Consultation March 26, 2021 Assessment & Plan (1) Perforated abdominal viscus: Final Assessment and Recommendations as follows : Sepsis secondary to intra-abdominal abscess secondary to complicated diverticulitis/appendicitis status post surgery morbid obesity status post bariatric surgery hyperlipidemia Hyperglycemia rule out DM Bloody NGT drainage possibly from traumatic insertion Agree with Zosyn DC Vancomycin given community-acquired intra-abdominal infection if okay with General Surgery Basal insulin, ISS BG goal 140-180 appropriate for ICU level of care, check hemoglobin A1c DVT prophylaxis. SCDs RE bloody NGT drainage Thank you very much for this consultation. Dr. Manrique will follow patient's progress. Text document was generated using [employer] voice recognition software. It may contain grammatical or spelling errors. Kindly contact undersigned for clarification of any documentation item in question. 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 History of Present Illness Reason for Consultation: Medical management Requesting Physician: Dr. Campbell Attending Physician: Pablito Campbell MD History of Present Illness PCP : Dr. Witt History obtained from patient and records. Medical history significant for morbid obesity status post bariatric surgery, hyperlipidemia. Patient not feeling well the last few days. Mild tolerable right lower abdominal discomfort. Patient woke up this morning with worsening stabbing right lower quadrant pain with dysuria symptoms. Some chills. Patient denies chest pain, cough, S OB. Patient consulted ER for evaluation. CT of the pelvis showed pneumoperitoneum, right lower quadrant abscess, perforated diverticulitis, possible appendicitis. Patient underwent emergent diagnostic laparoscopy converted to exploratory laparotomy. Subsequent appendectomy, sigmoid colon resection, colostomy creation and FLOWER drain insertion done for peritonitis, intra-abdominal abscess, acute appendicitis, and perforated sigmoid diverticulitis. Patient currently comfortable at the ICU for postop monitoring. 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 Allergies Allergy/AdvReac Type Severity Reaction Status Date / Time No Known Allergies Allergy Verified 03/26/21 14:15 Home Medications Medication Instructions Recorded Confirmed Type acetaminophen [Tylenol Extra 2,000 mg PO Q6 PRN 03/26/21 03/26/21 History Strength] rosuvastatin 10 mg PO DAILY 03/26/21 03/26/21 History Patient History Medical History (Updated 03/26/21 @ 17:06 by Phani Mcmullen DO) Hyperlipidemia Hypertension Surgical History S/P gastric bypass S/P hernia repair Family History Father Diabetes Mother Hypertension Social History Smoking Status: Never smoker Second Hand Exposure: No; Do You Dip or Chew Tobacco: No; Tobacco Cessation Education Requested by Patient: No Hx Alcohol Use: Yes Alcohol type: wine Hx Substance Use: No Preferred Language: Georgian Communication Ability: Effective Parasitology Teacher Required: No Beliefs That Will Affect Care: None marital status: Current Living Situation: Spouse current occupational status: employed Other Information That Helps Us Care for You: No Feels Safe at Home: Yes Safety Concerns: Feels Safe At This Time Assistive Devices: None Review of Systems Review of Systems: As per HPI, all 10 systems reviewed, all other ROS negative Physical Exam Physical Exam: GENERAL: Comfortable, pleasant, morbidly obese, no respiratory distress SKIN: Normal color, warm HEENT: [place] palpebral conjunctivae, no ptosis, dry buccal mucosa, NGT with bloody drainage, nasal cannula in place, NECK : Supple, short neck, no tenderness CHEST : CTA, no tenderness HEART : Tachycardic, no obvious murmurs ABDOMEN: Some distention, dressing over anterior abdomen EXTREMITIES : Minimal LE swelling, no LE tenderness, no other conspicuous deformities noted NEUROLOGIC : Coherent, no facial asymmetry, no other gross focality Results & Data Results & Data ([facility]) Vital Signs (Past 12 Hours) Vital Signs Temp Pulse Pulse Pulse Resp BP BP 03/26/21 22:30 100 H 19 03/26/21 22:20 37.6 C H 101 H 20 03/26/21 22:10 105 H 21 03/26/21 22:00 101 H 22 03/26/21 21:45 38.6 C H 110 H 18 03/26/21 16:11 39.1 C H 118 H 20 139/90 03/26/21 16:00 131/93 03/26/21 15:31 113 H 35 H 03/26/21 15:30 113 H 24 131/89 03/26/21 15:02 03/26/21 15:01 136/84 03/26/21 15:00 03/26/21 14:32 03/26/21 14:31 24 138/82 03/26/21 13:30 101 H 26 H 128/88 03/26/21 13:22 102 H 28 H 124/81 03/26/21 12:36 36.4 C L 100 H 20 114/78 BP Pulse Ox 03/26/21 22:30 128/78 94 03/26/21 22:20 135/78 95 03/26/21 22:10 131/76 95 03/26/21 22:00 115/82 95 03/26/21 21:45 129/84 95 03/26/21 16:11 94 03/26/21 16:00 03/26/21 15:31 03/26/21 15:30 03/26/21 15:02 97 03/26/21 15:01 97 03/26/21 15:00 97 03/26/21 14:32 95 03/26/21 14:31 95 03/26/21 13:30 94 03/26/21 13:22 96 03/26/21 12:36 97 Laboratory Results Laboratory Results WBC 13.45 K/uL (4.8-10.8) H 03/26/21 22:53 RBC 4.85 M/uL (4.7-6.1) 03/26/21 22:53 Hgb 14.1 g/dL (14.0-18.0) 03/26/21 22:53 Hct 43.2 % (42-52) 03/26/21 22:53 MCV 89.1 fL (80-100) 03/26/21 22:53 MCH 29.1 pg (25-34) 03/26/21 22:53 MCHC 32.6 g/dL (32-36) 03/26/21 22:53 RDW Std Deviation 46.1 fL (36.4-46.3) 03/26/21 22:53 RDW Coeff of Hans 13.9 % (11.5-14.5) 03/26/21 22:53 Plt Count 341 K/uL (130-400) 03/26/21 22:53 MPV 10.1 fL (7.4-10.4) 03/26/21 22:53 Immature Gran % (Auto) 0.1 % 03/26/21 13:15 Neut % (Auto) 75.4 % 03/26/21 13:15 Lymph % (Auto) 21.2 % 03/26/21 13:15 Webb % (Auto) 2.9 % 03/26/21 13:15 Eos % (Auto) 0.2 % 03/26/21 13:15 Baso % (Auto) 0.2 % 03/26/21 13:15 Neut # (Auto) 10.72 K/uL (1.4-6.5) H 03/26/21 13:15 Lymph # (Auto) 3.02 K/uL (1.2-3.4) 03/26/21 13:15 Webb # (Auto) 0.41 K/uL (0.11-0.59) 03/26/21 13:15 Eos # (Auto) 0.03 K/uL (0-0.5) 03/26/21 13:15 Baso # (Auto) 0.03 K/uL (0-0.2) 03/26/21 13:15 Immature Gran # (Auto) 0.02 K/uL (0.00-0.02) 03/26/21 13:15 PT 11.5 Seconds (9.0-12.0) 03/26/21 22:53 INR 1.1 (0.9-1.1) 03/26/21 22:53 Sodium 137 mmol/L (136-145) 03/26/21 13:15 Potassium 4.6 mmol/L (3.5-5.1) 03/26/21 13:15 Chloride 104 mmol/L (98-107) 03/26/21 13:15 Carbon Dioxide 23 mmol/L (21-32) 03/26/21 13:15 Anion Gap 10.0 (3-11) 03/26/21 13:15 BUN 16 mg/dl (7-18) 03/26/21 13:15 Creatinine 1.04 mg/dl (0.6-1.4) 03/26/21 13:15 Est Cr Clr Drug Dosing 123.0 ml/min 03/26/21 13:15 Est GFR ( Amer) 104.3 ml/min 03/26/21 13:15 Est GFR (Non-Af Amer) 90.0 ml/min 03/26/21 13:15 BUN/Creatinine Ratio 15.1 (10-20) 03/26/21 13:15 Glucose 164 mg/dl (70-99) H 03/26/21 13:15 Calcium 9.3 mg/dl (8.5-10.1) 03/26/21 13:15 Total Bilirubin 1.0 mg/dl (0.2-1) 03/26/21 13:15 AST 21 U/L (15-37) 03/26/21 13:15 ALT 36 U/L (12-78) 03/26/21 13:15 Alkaline Phosphatase 70 U/L (45-117) 03/26/21 13:15 Total Protein 8.1 gm/dl (6.4-8.2) 03/26/21 13:15 Albumin 3.5 gm/dl (3.4-5.0) 03/26/21 13:15 Globulin 4.6 gm/dl (2.5-4.0) H 03/26/21 13:15 Albumin/Globulin Ratio 0.8 (0.9-2) L 03/26/21 13:15 Lipase 87 U/L (73-393) 03/26/21 13:15 COVID-19 Eval Order Covid19 at [facility] 03/26/21 14:45 SARS-CoV-2 (PCR) NEGATIVE (Negative) 03/26/21 14:45 Impressions Abdomen/Pelvis CT 03/26/21 12:[address] WITHOUT CONTRAST CT DOSE: 1874.77 mGy.cm HISTORY: r flank pain TECHNIQUE: Multiaxial CT images of the abdomen and pelvis were performed without contrast. A dose lowering technique was utilized adhering to the principles of ALARA. COMPARISON STUDY: None. FINDINGS: The lung bases are clear. There or small scattered foci of free air seen within the abdomen and pelvis. There is a small abscess and fat stranding seen within the right lower quadrant. This abscess measures approximately 2.9 cm and is best seen on image 472. There is pericolonic fat stranding with mild colonic wall thickening at the mid sigmoid colon. Therefore, this favors a perforated acute diverticulitis. There is also inflammatory change and a small amount of fluid surrounding a distal ileal loop within the right lower quadrant best seen on image 428. Possible visualization of the appendix posterior to the cecum which appears normal in caliber. This is best seen on image 307 through 331. However, this could represent a small vessel rather than a normal appendix. Of note, the loculated fluid within the right lower quadrant is also seen inferior to the cecal base on image 419 and measures 2.7 cm. Although considered less likely, a perforated acute appendicitis could also result in this appearance. Therefore, surgical consultation recommended. Small amount pelvic fluid. Mild dilated gas-filled loops of mid small bowel are identified. Therefore, this could represent a partial small bowel obstruction with the transition point located on image 428 at the thickened ileal loops traversing through the inflammatory process within the right lower quadrant. The bladder is unremarkable. Postoperative changes consistent with prior gastric bypass. Hepatic steatosis. The unenhanced spleen is at the upper limits of normal. The unenhanced adrenal glands, pancreas, gallbladder are unremarkable. No renal stones or hydronephrosis. A 1.5 cm hypodense lesion within the right kidney. This is incompletely characters on this noncontrast study but statistically represents a cyst. Normal caliber abdominal aorta. No retroperitoneal lymphadenopathy. Prior mesh repair of an umbilical hernia. CT abdomen pelvis this IMPRESSION: 1. Scattered pneumoperitoneum with a 2.9 cm right lower quadrant abscess. There is pericolonic fat stranding with mild colonic wall thickening at the mid sigmoid colon. Therefore, this favors a perforated acute diverticulitis. 2. Possible visualization of the appendix posterior to the cecum which appears normal in caliber. However, this could represent a small vessel rather than a normal appendix. Of note, a loculated fluid collection is also seen within the right lower quadrant inferior to the cecal base and measures 2.7 cm. Although considered less likely, a perforated acute appendicitis could also result in this appearance. Therefore, surgical consultation recommended. 3. Mildly dilated gas-filled loops of mid small bowel are identified. Therefore, this could represent a partial small bowel obstruction with the transition point located at the thickened ileal loops traversing through the inflammatory process within the right lower quadrant. 4. Prior gastric bypass. 5. Additional findings as described above. ACT 112: Negative or not required by law. Electronically signed by: Ifeanyi Wall M.D. 03/26/2021 2:36 PM KUB X-Ray 03/26/21 20:51 KUB CLINICAL HISTORY: Intraoperative image. Incorrect surgical instrument count. FINDINGS: An AP, portable, supine abdominal radiograph is correlated with abdominal CT performed the same day 03/26/2021. There is a nonobstructed abdominal bowel gas pattern. A large metallic clip projects over the left upper quadrant. Numerous surgical clips are seen in the left midabdomen. There is no radiographic evidence of retained surgical implement. Midline skin clips are noted. A surgical drain is seen in the right lower quadrant. IMPRESSION: 1. There is no radiographic evidence of retained surgical implement. 2. Postoperative findings as above. Electronically signed by: Satinder Allen M.D. 03/26/2021 9:32 PM Chest x-ray as per my interpretation cardiomegaly, minimal congestion, atelectasis
[2021-03-26 23:29] LABS: BUN Creatinine Ratio 17.3 (10-20); Creatinine Clr Calc Pharmacy 144.1 ml/min; Est GFR (African American) 122.6 ml/min; Est GFR (Non-African American) 105.8 ml/min; Magnesium 1.7 mg/dl (1.8-2.4); Phosphorus 4.1 mg/dl (2.5-4.9); Potassium 5.2 mmol/L (3.5-5.1)
[2021-03-26] MEDS ORDERED: LORazepam 0.5 MG/1 ML VIAL IV PRN (23:49)
[2021-03-27] MEDS ORDERED: MAGNESIUM SULFATE / D5W 1 GM/100 ML BAG IV ONE (00:43)
[2021-03-27] MEDS ORDERED: GLUCAGON FOR INJ 1 MG VIAL SQ PRN (00:43)
[2021-03-27] MEDS ORDERED: CARBOHYDRATES FOR HYPOGLYCEMIA PO PRN (00:43)
[2021-03-27] MEDS ORDERED: GLUCOSE 40% GEL 15 GM TUBE PO PRN (00:43)
[2021-03-27] MEDS ORDERED: DEXTROSE 50% 50 ML SYRINGE IV PRN (00:43)
[2021-03-27] MEDS ORDERED: GLUCOSE 10 TABS/TUBE PO PRN (00:43)
[2021-03-27 01:03] LABS: Albumin Level 2.6 gm/dl (3.4-5.0)
[2021-03-27] MEDS: INSULIN ASPART 100 UNITS/ML 3 ML PEN SC SCH ×3 (01:35→11:50)
[2021-03-27] MEDS: SODIUM CHLORIDE 0.9% 1000ML 1,000 ML IV SCH ×2 (01:53→13:55)
[2021-03-27 03:10] LABS: Appearance Urine Clear (Clear); Bacteria Urine Automated Negative (Negative); Blood Urine Trace (Negative); Color Urine Dark Yellow; Glucose Urine UA 1+ (Negative); Ketones Urine 2+ (Negative); Leukocyte Esterase Urine Negative (Negative); Nitrite Urine Negative (Negative); Protein Urine Trace (Negative); RBC Urine Automated 0-4 /hpf (0-4); Urobilinogen Urine Negative (Negative); pH Urine 5.5 (4.5-7.5)
[2021-03-27 03:11] LABS: Bilirubin Urine 1+ (Negative)
[2021-03-27 05:06] LABS: Basophils # (auto) 0.01 K/uL (0-0.2); Basophils % (auto) 0.1 %; Hematocrit (blood only) 41.6 % (42-52); Hemoglobin 13.5 g/dL (14.0-18.0); Immature Granulocytes # (auto) 0.01 K/uL (0.00-0.02); Immature Granulocytes % (auto) 0.1 %; Lymphocytes # (auto) 1.24 K/uL (1.2-3.4); Lymphocytes % (auto) 11.2 %; Mean Corpuscular Hgb Conc 32.5 g/dL (32-36); Mean Corpuscular Volume 89.3 fL (80-100); Mean Platelet Volume 10.5 fL (7.4-10.4); Monocytes # (auto) 0.66 K/uL (0.11-0.59); Monocytes % (auto) 5.9 %; Neutrophils # (auto) 9.18 K/uL (1.4-6.5); Neutrophils % (auto) 82.7 %; Platelet Count 316 K/uL (130-400); RDW Coefficient of Variation 14.1 % (11.5-14.5); RDW Standard Deviation 46.1 fL (36.4-46.3); Red Blood Count 4.66 M/uL (4.7-6.1)
[2021-03-27 05:38] LABS: Albumin Level 2.4 gm/dl (3.4-5.0); BUN Creatinine Ratio 18.1 (10-20); Calcium 8.3 mg/dl (8.5-10.1); Creatinine Clr Calc Pharmacy 156.1 ml/min; Est GFR (African American) 127.8 ml/min; Est GFR (Non-African American) 110.3 ml/min; Magnesium 2.2 mg/dl (1.8-2.4); Potassium 4.6 mmol/L (3.5-5.1)
[2021-03-27 06:01] LABS: Albumin Globulin Ratio 0.6 (0.9-2); Bilirubin,Total 0.9 mg/dl (0.2-1); Globulin 3.9 gm/dl (2.5-4.0); Total Protein 6.3 gm/dl (6.4-8.2)
[2021-03-27 06:07] LABS: Estimated Average Glucose 120 mg/dl; Hemoglobin A1C 5.8 % (4.5-5.6)
[2021-03-27] MEDS: PIPERACILLIN/TAZOBACTAM 4.5 GM in DEXTROSE 5% 100 ML IV SCH ×3 (07:00→20:43)
[2021-03-27] MEDS: HYDROmorphone INJ 1 MG/ML SYRINGE IV PRN ×5 (07:32→20:56)
--- NOTE | 2021-03-27 08:06 | Operative Report (OR) ---
DATE OF PROCEDURE: 03/26/2021. PREOPERATIVE DIAGNOSES: Sepsis, peritonitis, perforated bowel, appendicitis. POSTOPERATIVE DIAGNOSIS: Sepsis, peritonitis, perforated sigmoid diverticulitis, acute appendicitis, severe contamination and intraabdominal abscess. PROCEDURE: Diagnostic laparoscopy, convert to exploratory laparotomy, appendectomy, resection of sigmoid colon, colostomy, FLOWER drain x2. SURGEON: Pablito Campbell MD ANESTHESIA: General. INTRAVENOUS FLUIDS: 3500 mL. ESTIMATED BLOOD LOSS: About 30 mL. FINDINGS: Peritonitis, perforation of sigmoid colon, diverticulitis, severe contamination, appendicitis, intra-abdominal abscess, intra-abdominal contamination with stool. SPECIMENS: None. INDICATIONS FOR THE PROCEDURE: This is a 40-year-old gentleman who presented to the ED with a couple weeks history of abdominal pain and this morning, the patient felt more pain. The patient came to the hospital ER. The patient had a CT scan diagnosis of perforated bowel and possible appendectomy with free air inside the abdomen. So I recommended to do a diagnostic laparotomy, possible exploratory laparotomy, appendectomy, possible bowel resection and stoma. I did talk to the patient about the benefits, risks, alternate procedures. I indicated the risks may include but not limited such as bleeding, infection, abscess, sepsis, multiple organ failure, injury to other organs, incisional hernia, bowel obstruction, DVT, even . The patient understands and he signed informed consent and I answered all questions. DETAILS OF PROCEDURE: After we identified the patient and verified the procedure, we brought in the patient to the OR and put the patient on the supine position. The patient received SCDs on bilateral leg to prevent DVT. Also, the patient received 1400 mg Zosyn IV for prophylactic antibiotic. The patient received general anesthesia without difficulty. Also, the patient received Bell catheter insertion. The abdomen was prepped and draped in routine sterile fashion. After timeout, I injected the local anesthesia by using 1% lidocaine mixed with 0.5% Marcaine just above the umbilicus. Then I made a small incision just above the umbilicus, opened the fascia and opened the peritoneum under direct vision, put a Eren trocar in, connected to CO2 to create a pneumoperitoneum, flow rate of 6 liters per minute, pressure not more than 14 mmHg. Then we put the camera in. Immediately, there was free contaminated fluid with stool inside the abdomen. We suctioned the fluid out and sent to the culture. Then we put another two 5 mm trocars on the left side lower quadrant area. Then we mobilized the cecum area. We found the patient had mild inflammation around the appendix. At this moment, I used the Harmonic to take down the appendiceal. I use a 45 mm Endo-JUAN stapler transection on the base of the appendix. Then we removed the appendix through the catch bag. Then we tried to find out where was the bowel perforation. At this moment, because of the contamination with significant adhesion, it was difficult to find out where was the bowel perforation, so we converted the midline incision to exploratory laparotomy after we removed all the scopes and instruments and trocars. Then we made a midline incision and opened fascia and got into the abdomen without difficulty. Again, we found the patient had severe contamination with stool inside the abdomen. We suctioned and cleaned out all the contamination fluid and then we checked the cecum area. No bowel perforation on the cecum and the ascending colon. Then we moved on to sigmoid colon. We found the patient had a significant sigmoid colon mass with significant inflammation with perforation of sigmoid colon. At this moment, we decided to do resection of sigmoid colon and create a colostomy. So I mobilized the sigmoid colon and used Endo-JUAN stapler 60 to staple the transection on the sigmoid and rectal junction. We checked and no leak and no active bleeding. Then proximal to the sigmoid, we also mobilized and took down the peritoneum on the lateral side colon. Again, we used 60 mm Endo-JUAN stapler on the proximal sigmoid colon, divided the sigmoid colon, and then I used endovascular to take down the mesocolon and then we removed the specimen sigmoid colon. The sigmoid colon we removed was about 15 cm. Rechecked, no active bleeding. Then we mobilized the proximal sigmoid colon and prepared to create a colostomy. Then we chose a colostomy site on the left side of the abdomen. We removed the partial skin and subcutaneous layer and opened the fascial layer and split the muscle creating the perineal opening and passed two fingers easily. Then we pulled out the sigmoid colon through the skin incision. Then we used 0 Vicryl to fix the sigmoid colon to the peritoneal level intraoperatively and also we fixed the sigmoid colon on the fascial layer by using 0 Vicryl interruptedly. At this moment, we decided to put the two FLOWER drains on the right side lower quadrant area. We passed two JPs drains go to the pelvic area, another one to go to the right lower quadrant area. We used 0 nylon to fix the FLOWER drainage on the skin. Then, we used warm saline with vancomycin 1 liter to flush abdomen for culture and we suctioned all the fluid out. The fluid changed to clear fluid once we suctioned out all fluid. Rechecked, no active bleeding and no injury to the bowel. Closed the midline incision fascial layer by using #1 PDS continuous running, closed subcutaneous layer by using 2-0 Vicryl continuous running, closed skin by using staple. Then we protected the incision. Then we created a colostomy and made a colon opening by using Bovie and blood circulation was nice pink. Then we used 3-0 Vicryl interruptedly to close the colostomy on the skin layer. Then we put the colostomy bag and put the dressing on. The patient tolerated the procedure well. The patient had an intraoperative KUB based on the surgical instrument count being incorrect and later on the KUB report came back as no surgical instrument intra-abdomen. Then the patient was transferred to ICU in stable condition and after procedure I did talk to the patient's on the phone about the OR findings and procedure we did and also answered questions. She understands and specimen sent to pathology. Job ID: [id number] [facility]
[2021-03-27] MEDS: PANTOprazole 40 MG in SYRINGE 0 ML IV SCH ×2 (08:25→20:44)
--- NOTE | 2021-03-27 08:39 | XRay Report ---
XR chest 1V portable HISTORY: Hypoxia. COMPARISON: None. FINDINGS: A nasogastric tube is curled within the proximal stomach. There are low lung volumes. No pn eumothorax. No pleural effusions. The cardiac silhouette is mildly enlarged. There is mild central pu lmonary vascular congestion without overt edema. Small patchy bibasilar densities are nonspecific but favor atelectasis given the low lung volumes. A pneumonia could also have a similar appearance. IMPRESSION: 1. Low lung volumes. 2. Cardiomegaly with mild congestive change. 3. Small patchy bibasilar densities are nonspecific but favor atelectasis given the low lung volumes. A pneumonia could also have a similar appearance. 4. Nasogastric tube is curled within the proximal stomach. ACT 112: Negative or not required by law. Electronically signed by: Ifeanyi Wall M.D. 03/27/2021 8:37 AM
[2021-03-27] MEDS ORDERED: INSULIN GLARGINE SOLOSTAR 100 UNITS/ML 3 ML PEN SC SCH (09:00)
--- NOTE | 2021-03-27 11:06 | Surgery Progress Note ---
Date of Service F/U S/P resection sigmoid colon, colostomy, appendectomy, POD 1 pt is doing better, good control incision pain, no fever, FLOWER 70ml, March 27, 2021 Assessment & Plan (1) Peritonitis, acute generalized: pt is a 40 year-old male who presents wto ER with 2 weeks history RLQ pain, IMP: peritonitis, perforated abdominal viscus, , appendicitis, diverticulitis, intra-abdominal abscess, sepsis Plan, I recommend to do diagnostic laparoscopy, possible appendectomy, exploratory laparostomy, bowel resection, stoma, D/W benefits, risks and alternatives of the surgery, the risks - infection, bleeding, abscess, sepsis, multiple organs failure, injury other organs, bowel obstruction, DVT, , pt understood, he agrees with the surgery,He signed inform consent, I answered all questions, pre-op antibiotic, 03/27/2021 11:02AM S/P resection sigmoid colon, colostomy, appendectomy, POD 1 doing fine, WBC 11,000, pt can be transfer to med/surg floor, keep NPO, and NG-tube continue iv antibiotic repeta labs in morning, will F/U, Thanks ICU and hospitalist involved pt care (2) Perforated abdominal viscus: Admission and Anticipated Discharge Date Admission Date: March 26, 2021 Review of Systems Constitutional: as per Subjective / HPI Eyes: as per Subjective / HPI Ear, Nose, Mouth, Throat: as per Subjective / HPI Respiratory: as per Subjective / HPI Cardiovascular: as per Subjective / HPI Additional Comments: hyperlipidemia Gastrointestinal: as per Subjective / HPI gastric bypass Genitourinary: + as per Subjective / HPI Musculoskeletal: as per Subjective / HPI Integumentary: as per Subjective / HPI Neurologic: as per Subjective / HPI Psychiatric: as per Subjective / HPI Endocrine: as per Subjective / HPI Hematologic / Lymphatic: as per Subjective / HPI Allergy / Immunological: as per Subjective / HPI Physical Exam Constitutional: WD/WN, vitals as above well developed and well nourished Eyes: PERRL, conjunctivae normal, anicteric sclerae ENMT: external ear and nose normal, oropharynx normal Neck: trachea midline, no thyromegaly Respiratory: normal respiratory effort, lungs clear to auscultation normal respiratory effort Cardiovascular: RRR, no murmur, no edema Rate/Rhythm: regular rate, regular rhythm and + tachycardic Heart Sounds: normal S1 and normal S2 Gastrointestinal (Abdomen): Percussion/Palpation: + abdomen tender and abdomen soft mild tenderness at incision site, no distend, incision intact, no reness, colostomy, pink, no pass stool yet, Musculoskeletal: no cyanosis or clubbing, extremities motor strength 5/5 Skin: no rashes, warm and dry Neurologic: awake Psychiatric: Orientation: alert and oriented x 3 Results & Data ([facility]) Vital Signs (Past 12 Hours) Vital Signs Temp Pulse Pulse Resp BP BP Pulse Ox 03/27/21 08:00 37.0 C 87 03/27/21 06:36 36.7 C 86 26 H 129/72 93 03/27/21 05:36 83 22 120/73 92 03/27/21 04:36 86 22 117/70 92 03/27/21 03:36 88 23 131/82 92 03/27/21 02:36 88 18 108/70 91 03/27/21 02:06 36.7 C 95 H 21 117/70 95 03/27/21 01:36 87 20 132/80 94 03/27/21 01:06 90 22 122/67 95 03/27/21 00:36 36.7 C 100 H 23 123/73 94 03/27/21 00:00 98 H 03/26/21 23:01 36.7 C 103 H 20 125/72 94 Laboratory Results Abnormal lab results 03/26/21 03/26/21 03/26/21 Range/Units 13:15 13:15 22:53 WBC 14.23 H 13.45 H (4.8-10.8) K/uL RBC (4.7-6.1) M/uL Hgb (14.0-18.0) g/dL Hct (42-52) % MPV (7.4-10.4) fL Neut # (Auto) 10.72 H (1.4-6.5) K/uL [place] # (Auto) (0.11-0.59) K/uL Potassium (3.5-5.1) mmol/L Glucose 164 H (70-99) mg/dl POC Glucose (70-99) mg/dl Hemoglobin A1c (4.5-5.6) % Calcium (8.5-10.1) mg/dl Magnesium (1.8-2.4) mg/dl Total Protein (6.4-8.2) gm/dl Albumin (3.4-5.0) gm/dl Globulin 4.6 H (2.5-4.0) gm/dl Albumin/Globulin Ratio 0.8 L (0.9-2) Procalcitonin (0-0.5) ng/ml Urine Protein (Negative) Urine Glucose (UA) (Negative) Urine Ketones (Negative) Urine Blood (Negative) Urine Bilirubin (Negative) U Hyaline Cast (Auto) (0-5) /lpf U Epithel Cells (Auto) (0-5) /lpf 03/26/21 03/26/21 03/26/21 Range/Units 22:53 22:53 22:53 WBC (4.8-10.8) K/uL RBC (4.7-6.1) M/uL Hgb (14.0-18.0) g/dL Hct (42-52) % MPV (7.4-10.4) fL Neut # (Auto) (1.4-6.5) K/uL [place] # (Auto) (0.11-0.59) K/uL Potassium 5.2 H (3.5-5.1) mmol/L Glucose 184 H (70-99) mg/dl POC Glucose (70-99) mg/dl Hemoglobin A1c 5.8 H (4.5-5.6) % Calcium 8.0 L (8.5-10.1) mg/dl Magnesium 1.7 L (1.8-2.4) mg/dl Total Protein (6.4-8.2) gm/dl Albumin 2.6 L (3.4-5.0) gm/dl Globulin (2.5-4.0) gm/dl Albumin/Globulin Ratio (0.9-2) Procalcitonin 2.74 H (0-0.5) ng/ml Urine Protein (Negative) Urine Glucose (UA) (Negative) Urine Ketones (Negative) Urine Blood (Negative) Urine Bilirubin (Negative) U Hyaline Cast (Auto) (0-5) /lpf U Epithel Cells (Auto) (0-5) /lpf 03/27/21 03/27/21 03/27/21 Range/Units 01:32 02:37 04:38 WBC 11.10 H (4.8-10.8) K/uL RBC 4.66 L (4.7-6.1) M/uL Hgb 13.5 L (14.0-18.0) g/dL Hct 41.6 L (42-52) % MPV 10.5 H (7.4-10.4) fL Neut # (Auto) 9.18 H (1.4-6.5) K/uL [place] # (Auto) 0.66 H (0.11-0.59) K/uL Potassium (3.5-5.1) mmol/L Glucose (70-99) mg/dl POC Glucose 194 H (70-99) mg/dl Hemoglobin A1c (4.5-5.6) % Calcium (8.5-10.1) mg/dl Magnesium (1.8-2.4) mg/dl Total Protein (6.4-8.2) gm/dl Albumin (3.4-5.0) gm/dl Globulin (2.5-4.0) gm/dl Albumin/Globulin Ratio (0.9-2) Procalcitonin (0-0.5) ng/ml Urine Protein Trace H (Negative) Urine Glucose (UA) 1+ H (Negative) Urine Ketones 2+ H (Negative) Urine Blood Trace H (Negative) Urine Bilirubin 1+ H (Negative) U Hyaline Cast (Auto) 5-10 H (0-5) /lpf U Epithel Cells (Auto) 5-10 H (0-5) /lpf 03/27/21 03/27/21 03/27/21 Range/Units 04:38 06:46 08:28 WBC (4.8-10.8) K/uL RBC (4.7-6.1) M/uL Hgb (14.0-18.0) g/dL Hct (42-52) % MPV (7.4-10.4) fL Neut # (Auto) (1.4-6.5) K/uL [place] # (Auto) (0.11-0.59) K/uL Potassium (3.5-5.1) mmol/L Glucose 198 H (70-99) mg/dl POC Glucose 150 H 136 H (70-99) mg/dl Hemoglobin A1c (4.5-5.6) % Calcium 8.3 L (8.5-10.1) mg/dl Magnesium (1.8-2.4) mg/dl Total Protein 6.3 L D (6.4-8.2) gm/dl Albumin 2.4 L (3.4-5.0) gm/dl Globulin (2.5-4.0) gm/dl Albumin/Globulin Ratio 0.6 L (0.9-2) Procalcitonin (0-0.5) ng/ml Urine Protein (Negative) Urine Glucose (UA) (Negative) Urine Ketones (Negative) Urine Blood (Negative) Urine Bilirubin (Negative) U Hyaline Cast (Auto) (0-5) /lpf U Epithel Cells (Auto) (0-5) /lpf
--- NOTE | 2021-03-27 11:27 | Critical Care Progress Note ---
Date of Service March 27, 2021 Assessment & Plan (1) Sepsis: Impression: 40-year-old female presents to the ICU following ex lap with appendectomy, sigmoid colon resection, and colostomy creation for intra- abdominal abscess, acute appendicitis, and perforated sigmoid diverticulitis with concerns for developing sepsis/peritonitis. Neuro - [facility] ICU: Negative Pain managementDilaudid Cardiac - Stable. No hemodynamic issues. HLDcontinue statin when taking p.o. Respiratory - No significant issues. Continue incentive spirometry and out of bed to chair to help prevent atelectasis. GI - Acute appendicitis/perforated sigmoid diverticulitiss/p diagnostic laparoscopy converted to exploratory laparotomy with appendectomy, sigmoid colon resection, colostomy creation, and FLOWER drain x2 -Management per surgical team, will follow recommendation -CT abdomen findings as described above -N.p.o., OG tube to intermittent low wall suction RENAL/LYTES - Creatinine within normal limits and no severe electrolyte abnormalities, monitor routine BMPs Continue IV fluids. - Foleystrict I's and O's ENDO - No history of diabetes or thyroid disease ICU hyperglycemic protocol HEME - H&H stable ID - Sepsispatient febrile with leukocytosis following perforated sigmoid diverticulitis/acute appendicitis -Abdominal cultures pending -COVID-19 negative -Continue Zosyn LINES/IV ACCESS - Peripheral IVs DVT PROPHYLAXIS - SCDs, hold anticoagulation following surgery Stable to transfer to floor. (2) Perforated abdominal viscus: (3) Peritonitis, acute generalized: (4) Hyperlipidemia: (5) Abdominal pain: (6) Small bowel obstruction: (7) Diverticulitis: Admission and Anticipated Discharge Date Admission Date: March 26, 2021 Subjective Patient seen examined this morning. He is sitting upright in his chair. He has some mild abdominal pain. No shortness of breath. No chest pain. No fevers or chills. Review of Systems Review of Systems: All systems reviewed & are unremarkable except as noted in HPI & below Physical Exam Constitutional: cooperative and comfortable Eyes: PERRL, conjunctivae normal, anicteric sclerae ENMT: external ear and nose normal, oropharynx normal Neck: trachea midline, no thyromegaly Respiratory: normal respiratory effort, lungs clear to auscultation Cardiovascular: RRR, no murmur, no edema Heart Sounds: normal S1 and normal S2 Vessels: no JVD Extremities: normal capillary refill; no edema Gastrointestinal (Abdomen): Abdomen distended but soft, right lower quadrant tenderness to light palpation, midline surgical incision appears patent, FLOWER drain x2 with serosanguineous drainage, colostomy appears red without evidence of ischemia Musculoskeletal: no cyanosis or clubbing, extremities motor strength 5/5 Skin: no rashes, warm and dry Neurologic: PERRL, EOMI, accommodation nl, no face palsy, no dysarthria Psychiatric: A+Ox3, euthymic affect Genitourinary: Indwelling Bell catheter Results & Data Results & Data ([facility]) Vital Signs (Past 12 Hours) Vital Signs Temp Pulse Resp BP Pulse Ox 03/27/21 08:00 98.6 F 87 03/27/21 06:36 98.1 F 86 26 H 129/72 93 03/27/21 05:36 83 22 120/73 92 03/27/21 04:36 86 22 117/70 92 03/27/21 03:36 88 23 131/82 92 03/27/21 02:36 88 18 108/70 91 03/27/21 02:06 98.1 F 95 H 21 117/70 95 03/27/21 01:36 87 20 132/80 94 03/27/21 01:06 90 22 122/67 95 03/27/21 00:36 98.1 F 100 H 23 123/73 94 03/27/21 00:00 98 H vital signs, labs and imaging reviewed Coding Level of Care Code 34387 Subseq Hosp Care Lvl 2 Diagnoses Sepsis A41.9 Sepsis acute organ dysfunction status: unspecified Sepsis type: sepsis due to unspecified organism Perforated abdominal viscus R19.8 Peritonitis, acute generalized K65.0 Hyperlipidemia E78.5 Abdominal pain R10.9 Abdominal location: unspecified location Small bowel obstruction K56.609 Diverticulitis K57.92 (1) Sepsis Sepsis acute organ dysfunction status: unspecified Sepsis type: sepsis due to unspecified organism Qualified Code(s): A41.9 - Sepsis, unspecified organism (2) Abdominal pain Abdominal location: unspecified location Qualified Code(s): R10.9 - Unspecified abdominal pain
--- NOTE | 2021-03-27 18:02 | Hospitalist Progress Note ---
Date of Service March 27, 2021 Assessment & Plan (1) Sepsis: Presented with a developing sepsis picture, resuscitated with source control. Continues on Zosyn. White blood cell count initially 14 K now 11 K (2) Perforated abdominal viscus: 40-year-old male who presented with sepsis secondary to peritonitis secondary to perforated sigmoid diverticulitis, appendicitis, and intra- abdominal abscess is postop day 1 status post ex lap with appendectomy, sigmoid colon resection and colostomy creation. He was transferred out of ICU to PCU today he is doing well. Maintains NG tube to suction. Advance diet per surgery. Pain is controlled. Continue Zosyn. (3) Diverticulitis: Status post colon resection with colostomy as above. Continue ostomy care and pain meds as needed. (4) Hyperglycemia: Initially had some hyperglycemia. A1c was screened and 5.8. Patient is not a diabetic. Stopping all blood sugar checks and insulin coverage at this time. (5) Hyperlipidemia: Takes Crestor, which is currently on hold while patient is n.p.o. (6) DVT prophylaxis: Lovenox recommended when feasible with surgery for chemoprophylaxis of DVT. In the meantime SCD should be hooked up to machine Full code Dispo-cont PCU Jennifer Manrique DO [facility] Hospitalist Admission and Anticipated Discharge Date Admission Date: March 26, 2021 Subjective 40-year-old man postop day 1 status post ex lap with sigmoid bowel resection, colostomy creation, and appendectomy by Dr. Campbell. Pain is controlled per patient. NG tube in place. IV fluids running. Transition to PCU care. at bedside. Patient denies abdominal tenderness, shortness of breath or other concerns at this time. Has no medical problems. notes that mother had diverticulosis at a young age, and had surgery in her 40s for this issue. She has questions about diet modifications, how long colostomy will be present, and FMLA paperwork on chart. Review of Systems Review of Systems: All systems reviewed & are unremarkable except as noted in Subjective Physical Exam Physical Exam: CONSTITUTIONAL: obese, vitals as above, generally well- appearing EYES: normal conjunctivae, no scleral icterus ENT: external ear and nose normal, NG tube in place RESPIRATORY: clear to auscultation bilaterally, no crackles, rales or wheezes, normal respiratory effort CARDIOVASCULAR: regular rate and rhythm, S1 and 2 heard without murmurs, gallops or rubs, no JVD, no peripheral edema GASTROINTESTINAL: soft, nontender, nondistended, colostomy in place, small incision present that is covered wtih bandage c/d/i MUSCULOSKELETAL: strength 5/5 throughout, head is normocephalic and atraumatic SKIN: warm and dry, appears slightly sunburned on face and shoulders. NEUROLOGIC: CN 2-12 grossly intact, no sensory deficit, normal cognition, normal speech, no gross focal deficits. PSYCHIATRIC: alert cooperative and oriented to person, place and time. Results & Data Results & Data ([facility]) Vital Signs (Past 12 Hours) Vital Signs Temp Pulse Pulse Resp BP BP Pulse Ox 03/27/21 16:53 36.5 C 92 H 18 144/91 H 98 03/27/21 11:36 94 H 23 119/79 91 03/27/21 10:36 88 23 129/72 92 03/27/21 09:36 88 22 120/74 91 03/27/21 08:36 90 25 H 124/77 93 03/27/21 08:00 37.0 C 87 03/27/21 07:36 90 26 H 123/76 90 03/27/21 06:36 36.7 C 86 26 H 129/72 93 Laboratory Results Short CBC 03/26/21 03/27/21 Range/Units 22:53 04:38 WBC 13.45 H 11.10 H (4.8-10.8) K/uL Hgb 14.1 13.5 L (14.0-18.0) g/dL Hct 43.2 41.6 L (42-52) % Plt Count 341 316 (130-400) K/uL [facility] 03/26/21 03/27/21 22:53 04:38 Sodium 137 136 Potassium 5.2 H 4.6 Chloride 107 107 Carbon Dioxide 21 24 BUN 16 15 Creatinine 0.91 0.84 Glucose 184 H 198 H Calcium 8.0 L 8.3 L Liver Function 03/26/21 03/27/21 Range/Units 22:53 04:38 Total Bilirubin 0.9 (0.2-1) mg/dl AST 16 (15-37) U/L ALT 22 (12-78) U/L Alkaline Phosphatase 48 (45-117) U/L Albumin 2.6 L 2.4 L (3.4-5.0) gm/dl Urine 03/27/21 Range/Units 02:37 Urine Color Dark Yellow Urine Appearance Clear (Clear) Urine pH 5.5 (4.5-7.5) Ur Specific [place] 1.030 (1.000-1.030) Urine Protein Trace H (Negative) Urine Glucose (UA) 1+ H (Negative) Medications Administered Current Inpatient Medications Dextrose (Dextrose 50% 50 Ml Syringe) 25 - 50 ml IV UD PRN; Protocol PRN Reason: Hypoglycemia Protocol Stop: 04/26/21 00:42 Glucagon (Glucagon For Inj 1 Mg Vial) 1 mg SQ UD PRN; Protocol PRN Reason: Hypoglycemia Protocol Stop: 04/26/21 00:42 Glucose (Glucose 10 Tabs/Tube) 4 - 8 tabs PO UD PRN; Protocol PRN Reason: Hypoglycemia Protocol Stop: 04/26/21 00:42 Glucose (Glucose 40% Gel 15 Gm Tube) 15 - 30 gm PO UD PRN; Protocol PRN Reason: Hypoglycemia Protocol Stop: 04/26/21 00:42 Hydromorphone HCl (Hydromorphone Inj 1 Mg/Ml Syringe) 1 mg IV Q3H PRN PRN Reason: Pain Stop: 04/09/21 22:24 Last Admin: 03/27/21 16:16 Dose: 1 mg Documented by: Piperacillin Sod/Tazobactam (Sod 4.5 gm/ Dextrose) 120 mls @ 30 mls/hr IV Q8H [facility]; Protocol Stop: 04/06/21 05:59 Last Admin: 03/27/21 13:54 Dose: 30 mls/hr Documented by: Pantoprazole Sodium 40 mg/ (Syringe) 10 mls @ 5 mls/min IV BID [facility] Stop: 04/26/21 08:59 Last Admin: 03/27/21 08:25 Dose: 5 mls/min Documented by: Promethazine HCl 12.5 mg/ (Sodium Chloride) 50.5 mls @ 202 mls/hr IV Q6H PRN PRN Reason: Nausea And Vomiting Stop: 04/25/21 23:48 Lorazepam (Ativan) 0.5 mg in 1 mls @ 1 mls/min IV Q4H PRN PRN Reason: Anxiety/Agitation Stop: 04/25/21 23:48 Sodium Chloride (Nss 1000ml) 1,000 mls @ 75 mls/hr IV .[id number] [facility] [place] Stop: 04/26/21 01:44 Last Admin: 03/27/21 13:55 Dose: 75 mls/hr Documented by: Insulin Aspart (Insulin Aspart 100 Units/Ml 3 Ml Pen) 0 units SC Q6 [facility] Stop: 04/26/21 00:44 Last Admin: 03/27/21 11:50 Dose: Not Given Documented by: Insulin Glargine (Insulin Glargine Solostar 100 Units/Ml 3 Ml Pen) 5 units SC DAILY [facility] Stop: 04/26/21 08:59 Last Admin: 03/27/21 08:26 Dose: 5 units Documented by: Miscellaneous (Carbohydrates For Hypoglycemia ) 15 - 30 gm PO UD PRN PRN Reason: Hypoglycemia Protocol Stop: 04/26/21 00:42 Miscellaneous Information (Piperacill/Tazobac Consult Active) 1 ea N/A UD PRN PRN Reason: Consult Stop: 04/25/21 22:24 (1) Sepsis Sepsis acute organ dysfunction status: unspecified Sepsis type: sepsis due to unspecified organism Qualified Code(s): A41.9 - Sepsis, unspecified organism
[2021-03-28] MEDS: PIPERACILLIN/TAZOBACTAM 4.5 GM in DEXTROSE 5% 100 ML IV SCH ×3 (05:37→22:36)
[2021-03-28] MEDS: SODIUM CHLORIDE 0.9% 1000ML 1,000 ML IV SCH ×2 (05:37→18:19)
[2021-03-28 07:48] LABS: Basophils # (auto) 0.02 K/uL (0-0.2); Basophils % (auto) 0.2 %; Eosinophils # (auto) 0.04 K/uL (0-0.5); Eosinophils % (auto) 0.4 %; Hematocrit (blood only) 37.2 % (42-52); Hemoglobin 12.2 g/dL (14.0-18.0); Immature Granulocytes # (auto) 0.04 K/uL (0.00-0.02); Immature Granulocytes % (auto) 0.4 %; Lymphocytes # (auto) 1.57 K/uL (1.2-3.4); Lymphocytes % (auto) 14.3 %; Mean Corpuscular Hemoglobin 28.6 pg (25-34); Mean Corpuscular Hgb Conc 32.8 g/dL (32-36); Mean Corpuscular Volume 87.1 fL (80-100); Mean Platelet Volume 9.7 fL (7.4-10.4); Monocytes # (auto) 0.61 K/uL (0.11-0.59); Monocytes % (auto) 5.6 %; Neutrophils # (auto) 8.68 K/uL (1.4-6.5); Neutrophils % (auto) 79.1 %; Platelet Count 368 K/uL (130-400); RDW Coefficient of Variation 14.1 % (11.5-14.5); RDW Standard Deviation 44.9 fL (36.4-46.3); Red Blood Count 4.27 M/uL (4.7-6.1); White Blood Count 10.96 K/uL (4.8-10.8)
[2021-03-28] MEDS: PANTOprazole 40 MG in SYRINGE 0 ML IV SCH ×2 (07:52→21:39)
[2021-03-28 08:09] LABS: Calcium 8.4 mg/dl (8.5-10.1); Creatinine Clr Calc Pharmacy 161.9 ml/min; Est GFR (African American) 129.8 ml/min; Potassium 4.2 mmol/L (3.5-5.1)
[2021-03-28 08:13] LABS: Phosphorus 2.5 mg/dl (2.5-4.9)
[2021-03-28] MEDS: INSULIN ASPART 100 UNITS/ML 3 ML PEN SC SCH (08:59)
[2021-03-28] MEDS: HYDROmorphone INJ 1 MG/ML SYRINGE IV PRN (09:10)
--- NOTE | 2021-03-28 13:00 | Hospitalist Progress Note ---
Date of Service March 28, 2021 Assessment & Plan (1) Sepsis: Presented with a developing sepsis picture, resuscitated with source control. Continues on Zosyn for 4-5 days post surgery (source control) per ID recommendations. White blood cell count initially 14 K now resolved to normal. (2) Perforated abdominal viscus: 40-year-old male who presented with sepsis secondary to peritonitis secondary to perforated sigmoid diverticulitis, appendicitis, and intra- abdominal abscess is postop day 1 status post ex lap with appendectomy, sigmoid colon resection and colostomy creation. He was transferred out of ICU to PCU today he is doing well. NG tube has been removed today. Advance diet per surgery. Pain is controlled. Continue Zosyn. Pain management options have been updated. (3) Diverticulitis: Status post colon resection with colostomy as above. Continue ostomy care and pain meds as needed. (4) Hyperglycemia: Initially had some hyperglycemia. A1c was screened and 5.8. Patient is not a diabetic. Stopping all blood sugar checks and insulin coverage at this time. (5) Hyperlipidemia: Takes Crestor, which is currently on hold while patient is n.p.o. (6) DVT prophylaxis: Lovenox Full code Dispo-transfer to floor, cont to ambulate as tolerated. Jennifer Manrique DO [facility] Hospitalist Admission and Anticipated Discharge Date Admission Date: March 26, 2021 Subjective 40-year-old man postop day 2 status post ex lap with sigmoid bowel resection, colostomy creation, and appendectomy by Dr. Campbell. Pain is controlled per patient. NG tube has been removed and he remains NPO. IV fluids running. at bedside. Patient denies shortness of breath or other concerns at this time. Has some abdominal pain and was taking dilaudid 1mg IV pushes as the only option for pain management. Discussed case with Dr. Campbell who is fine with oral oxycodone, IV Tylenol or IV Toradol as needed and is also fine with Lovenox. Review of Systems Review of Systems: All systems reviewed & are unremarkable except as noted in Subjective Physical Exam Physical Exam: CONSTITUTIONAL: obese, vitals as above, generally well- appearing EYES: normal conjunctivae, no scleral icterus ENT: external ear and nose normal RESPIRATORY: clear to auscultation bilaterally, no crackles, rales or wheezes, normal respiratory effort CARDIOVASCULAR: regular rate and rhythm, S1 and 2 heard without murmurs, gallops or rubs, no JVD, no peripheral edema GASTROINTESTINAL: soft, nontender, nondistended, colostomy in place, small incision present that is covered wtih bandage c/d/i MUSCULOSKELETAL: strength 5/5 throughout, head is normocephalic and atraumatic SKIN: warm and dry, appears slightly sunburned on face and shoulders. NEUROLOGIC: CN 2-12 grossly intact, no sensory deficit, normal cognition, normal speech, no gross focal deficits. PSYCHIATRIC: alert cooperative and oriented to person, place and time. Results & Data Results & Data ([facility]) Vital Signs (Past 12 Hours) Vital Signs Temp Pulse Pulse Resp BP Pulse Ox 03/28/21 11:00 104 H 03/28/21 10:58 36.6 C 99 H 20 125/77 91 03/28/21 07:07 37.1 C 97 H 19 122/79 90 03/28/21 03:42 37.4 C 98 H 18 114/73 90 Laboratory Results Short CBC 03/28/21 Range/Units 07:35 WBC 10.96 H (4.8-10.8) K/uL Hgb 12.2 L (14.0-18.0) g/dL Hct 37.2 L (42-52) % Plt Count 368 (130-400) K/uL BMP 03/28/21 07:35 Sodium 138 Potassium 4.2 Chloride 108 H Carbon Dioxide 24 BUN 13 Creatinine 0.81 Glucose 109 H Calcium 8.4 L Medications Administered Current Inpatient Medications Hydromorphone HCl (Hydromorphone Inj 1 Mg/Ml Syringe) 1 mg IV Q3H PRN PRN Reason: Pain Stop: 04/09/21 22:24 Last Admin: 03/28/21 09:10 Dose: 1 mg Documented by: Piperacillin Sod/Tazobactam (Sod 4.5 gm/ Dextrose) 120 mls @ 30 mls/hr IV Q8H [facility]; Protocol Stop: 04/06/21 05:59 Last Infusion: 03/28/21 09:49 Dose: Infused Documented by: Pantoprazole Sodium 40 mg/ (Syringe) 10 mls @ 5 mls/min IV BID [facility] Stop: 04/26/21 08:59 Last Admin: 03/28/21 07:52 Dose: 5 mls/min Documented by: Promethazine HCl 12.5 mg/ (Sodium Chloride) 50.5 mls @ 202 mls/hr IV Q6H PRN PRN Reason: Nausea And Vomiting Stop: 04/25/21 23:48 Lorazepam (Ativan) 0.5 mg in 1 mls @ 1 mls/min IV Q4H PRN PRN Reason: Anxiety/Agitation Stop: 04/25/21 23:48 Sodium Chloride (Nss 1000ml) 1,000 mls @ 75 mls/hr IV .[id number] [facility] Stop: 04/26/21 01:44 Last Admin: 03/28/21 05:37 Dose: 75 mls/hr Documented by: Miscellaneous Information (Piperacill/Tazobac Consult Active) 1 ea N/A UD PRN PRN Reason: Consult Stop: 04/25/21 22:24 (1) Sepsis Sepsis acute organ dysfunction status: unspecified Sepsis type: sepsis due to unspecified organism Qualified Code(s): A41.9 - Sepsis, unspecified organism
--- NOTE | 2021-03-28 13:06 | Surgery Progress Note ---
Date of Service pt is doing better, no significant abdominal pain, NG minimal, no gas or stool in colostomy bag, no fever, FLOWER 120ml clera fluid March 28, 2021 Assessment & Plan (1) Peritonitis, acute generalized: pt is a 40 year-old male who presents wto ER with 2 weeks history RLQ pain, IMP: peritonitis, perforated abdominal viscus, , appendicitis, diverticulitis, intra-abdominal abscess, sepsis Plan, I recommend to do diagnostic laparoscopy, possible appendectomy, exploratory laparostomy, bowel resection, stoma, D/W benefits, risks and alternatives of the surgery, the risks - infection, bleeding, abscess, sepsis, multiple organs failure, injury other organs, bowel obstruction, DVT, , pt understood, he agrees with the surgery,He signed inform consent, I answered all questions, pre-op antibiotic, 03/27/2021 11:02AM S/P resection sigmoid colon, colostomy, appendectomy, POD 1 doing fine, WBC 11,000, pt can be transfer to med/surg floor, keep NPO, and NG-tube continue iv antibiotic repeta labs in morning, will F/U, Thanks ICU and hospitalist involved pt care 03/28/2021 1:02PM S/P resection sigmoid colon, colostomy, appendectomy, POD 2 doing fine, pull out NG, clear diet tomorrow, continue iv antibiotic repeat labs in morning, will F/U, floor person surgeon cover this weekend, (2) Perforated abdominal viscus: Admission and Anticipated Discharge Date Admission Date: March 26, 2021 Subjective 40-year-old man postop day 1 status post ex lap with sigmoid bowel resection, colostomy creation, and appendectomy by Dr. Campbell. Pain is controlled per patient. NG tube in place. IV fluids running. Transition to PCU care. at bedside. Patient denies abdominal tenderness, shortness of breath or other concerns at this time. Has no medical problems. notes that mother had diverticulosis at a young age, and had surgery in her 40s for this issue. She has questions about diet modifications, how long colostomy will be present, and FMLA paperwork on chart. Review of Systems Constitutional: as per Subjective / HPI Eyes: as per Subjective / HPI Ear, Nose, Mouth, Throat: as per Subjective / HPI Respiratory: as per Subjective / HPI Cardiovascular: as per Subjective / HPI Additional Comments: hyperlipidemia Gastrointestinal: as per Subjective / HPI gastric bypass Genitourinary: + as per Subjective / HPI Musculoskeletal: as per Subjective / HPI Integumentary: as per Subjective / HPI Neurologic: as per Subjective / HPI Psychiatric: as per Subjective / HPI Endocrine: as per Subjective / HPI Hematologic / Lymphatic: as per Subjective / HPI Allergy / Immunological: as per Subjective / HPI Physical Exam Constitutional: WD/WN, vitals as above well developed and well nourished Eyes: PERRL, conjunctivae normal, anicteric sclerae ENMT: external ear and nose normal, oropharynx normal Neck: trachea midline, no thyromegaly Respiratory: normal respiratory effort, lungs clear to auscultation normal respiratory effort Cardiovascular: RRR, no murmur, no edema Rate/Rhythm: regular rate, regular rhythm and + tachycardic Heart Sounds: normal S1 and normal S2 Gastrointestinal (Abdomen): normal bowel sounds, soft, nontender, no hepatosplenomegaly Inspection/Auscultation: abdomen normal to inspection Percussion/Palpation: abdomen soft FLOWER intact, BS + colostomy pink, no gas or stool in bag, Musculoskeletal: no cyanosis or clubbing, extremities motor strength 5/5 Skin: no rashes, warm and dry Neurologic: awake Psychiatric: Orientation: alert and oriented x 3 Results & Data ([facility]) Vital Signs (Past 12 Hours) Vital Signs Temp Pulse Pulse Resp BP Pulse Ox 03/28/21 11:00 104 H 03/28/21 10:58 36.6 C 99 H 20 125/77 91 03/28/21 07:07 37.1 C 97 H 19 122/79 90 03/28/21 03:42 37.4 C 98 H 18 114/73 90 Laboratory Results Abnormal lab results 03/27/21 03/27/21 03/28/21 Range/Units 16:39 23:57 05:47 WBC (4.8-10.8) K/uL RBC (4.7-6.1) M/uL Hgb (14.0-18.0) g/dL Hct (42-52) % Neut # (Auto) (1.4-6.5) K/uL Loving # (Auto) (0.11-0.59) K/uL Immature Gran # (Auto) (0.00-0.02) K/uL Chloride (98-107) mmol/L Glucose (70-99) mg/dl POC Glucose 121 H 131 H 111 H (70-99) mg/dl Calcium (8.5-10.1) mg/dl 03/28/21 03/28/21 03/28/21 Range/Units 07:35 07:35 12:21 WBC 10.96 H (4.8-10.8) K/uL RBC 4.27 L (4.7-6.1) M/uL Hgb 12.2 L (14.0-18.0) g/dL Hct 37.2 L (42-52) % Neut # (Auto) 8.68 H (1.4-6.5) K/uL Loving # (Auto) 0.61 H (0.11-0.59) K/uL Immature Gran # (Auto) 0.04 H (0.00-0.02) K/uL Chloride 108 H (98-107) mmol/L Glucose 109 H (70-99) mg/dl POC Glucose 109 H (70-99) mg/dl Calcium 8.4 L (8.5-10.1) mg/dl
[2021-03-28] MEDS ORDERED: oxyCODONE/ACETAMINOPHEN 5mg/325mg TAB PO PRN (13:44)
[2021-03-28] MEDS ORDERED: ACETAMINOPHEN 325 MG TAB PO PRN (13:44)
[2021-03-28 14:59] LABS: Albumin Level 2.3 gm/dl (3.4-5.0); BUN Creatinine Ratio 13.8 (10-20); Calcium 8.6 mg/dl (8.5-10.1); Creatinine Clr Calc Pharmacy 174.9 ml/min; Est GFR (African American) 133.9 ml/min; Est GFR (Non-African American) 115.6 ml/min; Potassium 4.2 mmol/L (3.5-5.1)
[2021-03-28 15:02] LABS: Albumin Globulin Ratio 0.5 (0.9-2); Bilirubin,Total 0.7 mg/dl (0.2-1); Globulin 4.2 gm/dl (2.5-4.0); Total Protein 6.5 gm/dl (6.4-8.2)
[2021-03-28] MEDS: oxyCODONE/ACETAMINOPHEN 5mg/325mg TAB PO PRN (18:19)
[2021-03-28] MEDS: ACETAMINOPHEN 1,000 MG/100 ML VIAL IV SCH (21:38)
[2021-03-29] MEDS: SODIUM CHLORIDE 0.9% 1000ML 1,000 ML IV SCH ×2 (01:55→16:09)
[2021-03-29] MEDS: ACETAMINOPHEN 1,000 MG/100 ML VIAL IV SCH ×3 (05:03→21:51)
[2021-03-29] MEDS: PIPERACILLIN/TAZOBACTAM 4.5 GM in DEXTROSE 5% 100 ML IV SCH ×3 (05:18→21:26)
--- NOTE | 2021-03-29 06:25 | Surgery Progress Note ---
Date of Service March 29, 2021 Assessment & Plan (1) Peritonitis, acute generalized: Status post sigmoid colon resection with colostomy formation and appendectomy on 03/27/2021 Continue analgesics as needed Continue antiemetics as needed We will continue n.p.o. status until improved bowel function is noted Continue hydration with IV fluids until oral intake is adequate I encouraged the patient to ambulate in the hallway Encourage patient to use incentive spirometry Abdominal cultures grew E. coli which is pansensitive. Will continue antibiotics in the form of Zosyn We will add subcu heparin for DVT prevention as above. feeling better each day. pain control good. no nausea. stoma looks good. will start clears. Admission and Anticipated Discharge Date Admission Date: March 26, 2021 Subjective Patient notes his abdominal pain is presently well controlled. He denies any nausea or vomiting. He notes that he has had a small amount of output into his ostomy. He denies any fevers, shakes, chills. Physical Exam Gastrointestinal (Abdomen): Bowel sounds are hypoactive. Patient has pain with palpation near surgical incisions. Patient's ostomy was examined and it appears pink and viable. There is a small amount of liquid stool in the collection bag. Results & Data ([facility]) Vital Signs (Past 12 Hours) Vital Signs Temp Pulse Resp BP Pulse Ox 03/28/21 22:16 37 C 83 19 120/70 92 PG Care Time/CCT Total # of Minutes Spent Total Time Spent with Patient: Total time spent is greater than 50% in coordination of care (as documented) at patient's floor/unit and/or counseling patient: Coding Level of Care Code None Diagnoses Peritonitis, acute generalized K65.0
[2021-03-29] MEDS: HEPARIN SOD 5,000 UNIT/0.5 ML VIAL SQ SCH ×2 (09:12→21:26)
[2021-03-29] MEDS: PANTOprazole 40 MG in SYRINGE 0 ML IV SCH ×2 (09:12→21:28)
[2021-03-29] MEDS: KETOROLAC TROMETHAMINE 15 MG/ML VIAL IV PRN ×2 (09:12→16:29)
[2021-03-29] MEDS: ROSUVASTATIN CALCIUM 10 MG TAB PO SCH (09:32)
[2021-03-29 09:41] LABS: Basophils # (auto) 0.01 K/uL (0-0.2); Basophils % (auto) 0.2 %; Eosinophils # (auto) 0.11 K/uL (0-0.5); Eosinophils % (auto) 1.7 %; Hematocrit (blood only) 37.5 % (42-52); Hemoglobin 12.2 g/dL (14.0-18.0); Immature Granulocytes # (auto) 0.01 K/uL (0.00-0.02); Immature Granulocytes % (auto) 0.2 %; Lymphocytes # (auto) 1.32 K/uL (1.2-3.4); Lymphocytes % (auto) 19.9 %; Mean Corpuscular Hemoglobin 28.5 pg (25-34); Mean Corpuscular Hgb Conc 32.5 g/dL (32-36); Mean Corpuscular Volume 87.6 fL (80-100); Mean Platelet Volume 9.7 fL (7.4-10.4); Monocytes # (auto) 0.44 K/uL (0.11-0.59); Monocytes % (auto) 6.6 %; Neutrophils # (auto) 4.75 K/uL (1.4-6.5); Neutrophils % (auto) 71.4 %; Platelet Count 355 K/uL (130-400); RDW Coefficient of Variation 13.9 % (11.5-14.5); RDW Standard Deviation 44.5 fL (36.4-46.3); Red Blood Count 4.28 M/uL (4.7-6.1); White Blood Count 6.64 K/uL (4.8-10.8)
[2021-03-29 10:11] LABS: BUN Creatinine Ratio 16.4 (10-20); Calcium 8.8 mg/dl (8.5-10.1); Creatinine Clr Calc Pharmacy 184.7 ml/min; Est GFR (Non-African American) 118.2 ml/min
--- NOTE | 2021-03-29 13:41 | Hospitalist Progress Note ---
Date of Service March 29, 2021 Assessment & Plan (1) Sepsis: Presented with a developing sepsis picture, resuscitated with source control. Continues on Zosyn for 4-5 days post surgery (source control) per ID recommendations. White blood cell count initially 14 K now resolved to normal. (2) Perforated abdominal viscus: 40-year-old male who presented with sepsis secondary to peritonitis secondary to perforated sigmoid diverticulitis, appendicitis, and intra- abdominal abscess is postop day 1 status post ex lap with appendectomy, sigmoid colon resection and colostomy creation. NG tube has been removed. Advance diet per surgery. Pain is controlled. Continue Zosyn. (3) Diverticulitis: Status post colon resection with colostomy as above. Continue ostomy care and pain meds as needed. (4) Hyperglycemia: Initially had some hyperglycemia. A1c was screened and 5.8. Patient is not a diabetic. Stopped all blood sugar checks and insulin coverage (5) Hyperlipidemia: Takes Crestor, which is currently on hold while patient is n.p.o. (6) DVT prophylaxis: Lovenox Full code Dispo-transfer to floor, cont to ambulate as tolerated. Jennifer Manrique DO [facility] Hospitalist Admission and Anticipated Discharge Date Admission Date: March 26, 2021 Subjective 40-year-old man postop day 3 status post ex lap with sigmoid bowel resection, colostomy creation, and appendectomy by Dr. Campbell. Pain is controlled. Tolerating clears. Flatus into colostomy. Ambulating Review of Systems Review of Systems: All systems reviewed & are unremarkable except as noted in Subjective Physical Exam Physical Exam: CONSTITUTIONAL: obese, vitals as above, generally well- appearing EYES: normal conjunctivae, no scleral icterus ENT: external ear and nose normal RESPIRATORY: clear to auscultation bilaterally, no crackles, rales or wheezes, normal respiratory effort CARDIOVASCULAR: regular rate and rhythm, S1 and 2 heard without murmurs, gallops or rubs, no JVD, no peripheral edema GASTROINTESTINAL: soft, nontender, nondistended, colostomy in place, small incision present that is covered wtih bandage c/d/i MUSCULOSKELETAL: strength 5/5 throughout, head is normocephalic and atraumatic SKIN: warm and dry, appears slightly sunburned on face and shoulders. NEUROLOGIC: CN 2-12 grossly intact, no sensory deficit, normal cognition, normal speech, no gross focal deficits. PSYCHIATRIC: alert cooperative and oriented to person, place and time. Results & Data Results & Data ([facility]) Vital Signs (Past 12 Hours) Vital Signs Temp Pulse Resp BP Pulse Ox 03/29/21 07:55 36.5 C 93 H 16 130/65 92 Laboratory Results Short CBC 03/29/21 Range/Units 09:08 WBC 6.64 (4.8-10.8) K/uL Hgb 12.2 L (14.0-18.0) g/dL Hct 37.5 L (42-52) % Plt Count 355 (130-400) K/uL BMP 03/28/21 03/29/21 13:39 09:08 Sodium 138 142 Potassium 4.2 4.0 Chloride 106 111 H Carbon Dioxide 23 25 BUN 10 12 Creatinine 0.75 0.71 Glucose 101 H 84 Calcium 8.6 8.8 Liver Function 03/28/21 Range/Units 13:39 Total Bilirubin 0.7 (0.2-1) mg/dl AST 21 (15-37) U/L ALT 20 (12-78) U/L Alkaline Phosphatase 62 (45-117) U/L Albumin 2.3 L (3.4-5.0) gm/dl Medications Administered Current Inpatient Medications Acetaminophen (Acetaminophen 325 Mg Tab) 650 mg PO Q4H PRN PRN Reason: Mild Pain Stop: 04/27/21 13:43 Heparin Sodium (Porcine) (Heparin Sod 5,000 Unit/0.5 Ml Vial) 5,000 units SQ Q12 [facility] Stop: 04/28/21 08:59 Last Admin: 03/29/21 09:12 Dose: 5,000 units Documented by: Piperacillin Sod/Tazobactam (Sod 4.5 gm/ Dextrose) 120 mls @ 30 mls/hr IV Q8H [facility]; Protocol Stop: 04/06/21 05:59 Last Admin: 03/29/21 13:14 Dose: 30 mls/hr Documented by: Pantoprazole Sodium 40 mg/ (Syringe) 10 mls @ 5 mls/min IV BID [facility] Stop: 04/26/21 08:59 Last Admin: 03/29/21 09:12 Dose: 5 mls/min Documented by: Promethazine HCl 12.5 mg/ (Sodium Chloride) 50.5 mls @ 202 mls/hr IV Q6H PRN PRN Reason: Nausea And Vomiting Stop: 04/25/21 23:48 Lorazepam (Ativan) 0.5 mg in 1 mls @ 1 mls/min IV Q4H PRN PRN Reason: Anxiety/Agitation Stop: 04/25/21 23:48 Sodium Chloride (Nss 1000ml) 1,000 mls @ 75 mls/hr IV .[id number] [facility] Stop: 04/26/21 01:44 Last Admin: 03/29/21 01:55 Dose: 75 mls/hr Documented by: Acetaminophen (Ofirmev) 1,000 mg in 100 mls @ 400 mls/hr IV Q8 [facility] Stop: 03/31/21 20:59 Last Infusion: 03/29/21 13:31 Dose: Infused Documented by: Ketorolac Tromethamine (Ketorolac Tromethamine 15 Mg/Ml Vial) 15 mg IV Q6H PRN PRN Reason: Pain Stop: 04/02/21 20:27 Last Admin: 03/29/21 09:12 Dose: 15 mg Documented by: Miscellaneous Information (Piperacill/Tazobac Consult Active) 1 ea N/A UD PRN PRN Reason: Consult Stop: 04/25/21 22:24 Oxycodone/Acetaminophen (Oxycodone/Acetaminophen 5mg/325mg Tab) 1 tab PO Q4H PRN PRN Reason: MODERATE PAIN Stop: 04/11/21 13:43 Last Admin: 03/28/21 18:19 Dose: 1 tab Documented by: Oxycodone/Acetaminophen (Oxycodone/Acetaminophen 5mg/325mg Tab) 2 tab PO Q4H PRN PRN Reason: Severe Pain Stop: 04/11/21 13:43 Last Admin: 03/29/21 11:18 Dose: 2 tab Documented by: Rosuvastatin Calcium (Rosuvastatin Calcium 10 Mg Tab) 10 mg PO DAILY [facility] Stop: 04/28/21 08:59 Last Admin: 03/29/21 09:32 Dose: 10 mg Documented by: (1) Sepsis Sepsis acute organ dysfunction status: unspecified Sepsis type: sepsis due to unspecified organism Qualified Code(s): A41.9 - Sepsis, unspecified organism
[2021-03-30] MEDS: ACETAMINOPHEN 1,000 MG/100 ML VIAL IV SCH ×3 (05:08→22:00)
[2021-03-30] MEDS: PIPERACILLIN/TAZOBACTAM 4.5 GM in DEXTROSE 5% 100 ML IV SCH ×3 (05:08→22:05)
[2021-03-30] MEDS: SODIUM CHLORIDE 0.9% 1000ML 1,000 ML IV SCH (05:09)
--- NOTE | 2021-03-30 05:56 | Surgery Progress Note ---
Date of Service March 30, 2021 Assessment & Plan (1) Peritonitis, acute generalized: Status post sigmoid colon resection with colostomy formation and appendectomy on 03/27/2021 Continue analgesics as needed Continue antiemetics as needed Consider advancing diet to full liquids this morning as he has had return of bowel function and is tolerating clears. Continue hydration with IV fluids until oral intake is adequate Continue ambulation in the hallway Continue incentive spirometry Abdominal cultures grew E. coli which is pansensitive. He is receiving antibiotics in the form of Zosyn -subcu heparin is in place for DVT prevention As above. Continues to do well and improved. Tolerated clear liquids without issue. Starting to get increased stoma output. No pain. No nausea. We will advance to full liquids. Admission and Anticipated Discharge Date Admission Date: March 26, 2021 Subjective Patient is resting comfortably in bed. He notes that he tolerated clear liquids yesterday without exacerbating any abdominal pain. He denies any nausea or vomiting. He is ambulated in the hallway. He denies shortness of breath. Discussed with nurse at bedside. Ostomy has been changed during the previous shift and he did have some solid material in the collection bag. There is also gas noted in the collection bag. Physical Exam Gastrointestinal (Abdomen): Abdomen is soft and nondistended. Bowel sounds are present. His ostomy is pink and viable. At the present time there is gas noted in the collection bag. There is minimal pain with palpation of his abdomen. His incision is clean dry and intact. FLOWER drains are in place draining serous fluid. Results & Data ([facility]) Vital Signs (Past 12 Hours) Vital Signs Temp Pulse Resp BP Pulse Ox 03/29/21 22:21 37.8 C H 93 H 19 126/82 91 PG Care Time/CCT Total # of Minutes Spent Total Time Spent with Patient: Total time spent is greater than 50% in coordination of care (as documented) at patient's floor/unit and/or counseling patient: Coding Level of Care Code None Diagnoses Peritonitis, acute generalized K65.0
[2021-03-30 06:50] LABS: Basophils # (auto) 0.01 K/uL (0-0.2); Basophils % (auto) 0.3 %; Eosinophils # (auto) 0.11 K/uL (0-0.5); Eosinophils % (auto) 2.8 %; Hemoglobin 11.6 g/dL (14.0-18.0); Immature Granulocytes # (auto) 0.01 K/uL (0.00-0.02); Immature Granulocytes % (auto) 0.3 %; Lymphocytes # (auto) 0.88 K/uL (1.2-3.4); Lymphocytes % (auto) 22.1 %; Mean Corpuscular Hemoglobin 28.6 pg (25-34); Mean Corpuscular Hgb Conc 33.1 g/dL (32-36); Mean Corpuscular Volume 86.2 fL (80-100); Mean Platelet Volume 9.5 fL (7.4-10.4); Monocytes # (auto) 0.38 K/uL (0.11-0.59); Monocytes % (auto) 9.5 %; Platelet Count 317 K/uL (130-400); RDW Coefficient of Variation 13.8 % (11.5-14.5); RDW Standard Deviation 43.4 fL (36.4-46.3); Red Blood Count 4.06 M/uL (4.7-6.1); White Blood Count 3.99 K/uL (4.8-10.8)
[2021-03-30 07:19] LABS: Calcium 8.4 mg/dl (8.5-10.1); Creatinine Clr Calc Pharmacy 187.4 ml/min; Est GFR (African American) 137.8 ml/min; Est GFR (Non-African American) 118.9 ml/min; Potassium 3.7 mmol/L (3.5-5.1)
[2021-03-30] MEDS: ROSUVASTATIN CALCIUM 10 MG TAB PO SCH (08:48)
[2021-03-30] MEDS: HEPARIN SOD 5,000 UNIT/0.5 ML VIAL SQ SCH ×2 (08:48→22:03)
[2021-03-30] MEDS: PANTOprazole 40 MG in SYRINGE 0 ML IV SCH ×2 (08:48→21:57)
[2021-03-30] MEDS: oxyCODONE/ACETAMINOPHEN 5mg/325mg TAB PO PRN (12:02)
--- NOTE | 2021-03-30 13:32 | Hospitalist Progress Note ---
Date of Service March 30, 2021 Assessment & Plan (1) Sepsis: Presented with a developing sepsis picture, resuscitated with source control. Continues on Zosyn for 4-5 days post surgery (source control) per ID recommendations. Leukocytosis resolved. Will stop Zosyn formally tomorrow (03/31/21) (2) Perforated abdominal viscus: 40-year-old male who presented with sepsis secondary to peritonitis secondary to perforated sigmoid diverticulitis, appendicitis, and intra- abdominal abscess is postop day 1 status post ex lap with appendectomy, sigmoid colon resection and colostomy creation. NG tube has been removed. Advance diet per surgery. Pain is controlled. Continue Zosyn. (3) Diverticulitis: Status post colon resection with colostomy as above. Continue ostomy care and pain meds as needed. (4) Hyperglycemia: Initially had some hyperglycemia. A1c was screened and 5.8. Patient is not a diabetic. Stopped all blood sugar checks and insulin coverage (5) Hyperlipidemia: cont crestor per home regimen. (6) DVT prophylaxis: Lovenox Full code Dispo-ambulating well [facility] PT. DC to home when ok [facility] surgery. Jennifer Manrique DO [facility] Hospitalist Admission and Anticipated Discharge Date Admission Date: March 26, 2021 Subjective 40-year-old man postop day 3 status post ex lap with sigmoid bowel resection, colostomy creation, and appendectomy by Dr. Campbell. Pain is controlled. Tolerating clears. Flatus/ fecal material into colostomy. Ambulating Review of Systems Review of Systems: All systems reviewed & are unremarkable except as noted in Subjective Physical Exam Physical Exam: CONSTITUTIONAL: obese, vitals as above, generally well- appearing EYES: normal conjunctivae, no scleral icterus ENT: external ear and nose normal RESPIRATORY: clear to auscultation bilaterally, no crackles, rales or wheezes, normal respiratory effort CARDIOVASCULAR: regular rate and rhythm, S1 and 2 heard without murmurs, gallops or rubs, no JVD, no peripheral edema GASTROINTESTINAL: soft, nontender, nondistended, colostomy in place-fecal material in place, small incision present that is covered [facility] bandage c/d/i MUSCULOSKELETAL: strength 5/5 throughout, head is normocephalic and atraumatic SKIN: warm and dry, appears slightly sunburned on face and shoulders. NEUROLOGIC: CN 2-12 grossly intact, no sensory deficit, normal cognition, normal speech, no gross focal deficits. PSYCHIATRIC: alert cooperative and oriented to person, place and time. Results & Data Results & Data ([facility]) Vital Signs (Past 12 Hours) Vital Signs Temp Pulse Resp BP Pulse Ox 03/30/21 06:24 36.8 C 88 16 116/74 92 Laboratory Results Short CBC 03/30/21 Range/Units 06:11 WBC 3.99 L (4.8-10.8) K/uL Hgb 11.6 L (14.0-18.0) g/dL Hct 35.0 L (42-52) % Plt Count 317 (130-400) K/uL BMP 03/30/21 06:11 Sodium 140 Potassium 3.7 Chloride 109 H Carbon Dioxide 24 BUN 13 Creatinine 0.70 Glucose 95 Calcium 8.4 L Medications Administered Current Inpatient Medications Acetaminophen (Acetaminophen 325 Mg Tab) 650 mg PO Q4H PRN PRN Reason: Mild Pain Stop: 04/27/21 13:43 Heparin Sodium (Porcine) (Heparin Sod 5,000 Unit/0.5 Ml Vial) 5,000 units SQ Q12 [facility] Stop: 04/28/21 08:59 Last Admin: 03/30/21 08:48 Dose: 5,000 units Documented by: Piperacillin Sod/Tazobactam (Sod 4.5 gm/ Dextrose) 120 mls @ 30 mls/hr IV Q8H [facility]; Protocol Stop: 04/06/21 05:59 Last Infusion: 03/30/21 09:33 Dose: Infused Documented by: Pantoprazole Sodium 40 mg/ (Syringe) 10 mls @ 5 mls/min IV BID [facility] Stop: 04/26/21 08:59 Last Admin: 03/30/21 08:48 Dose: 5 mls/min Documented by: Promethazine HCl 12.5 mg/ (Sodium Chloride) 50.5 mls @ 202 mls/hr IV Q6H PRN PRN Reason: Nausea And Vomiting Stop: 04/25/21 23:48 Lorazepam (Ativan) 0.5 mg in 1 mls @ 1 mls/min IV Q4H PRN PRN Reason: Anxiety/Agitation Stop: 04/25/21 23:48 Acetaminophen (Ofirmev) 1,000 mg in 100 mls @ 400 mls/hr IV Q8 [facility] Stop: 03/31/21 20:59 Last Admin: 03/30/21 13:26 Dose: 400 mls/hr Documented by: Ketorolac Tromethamine (Ketorolac Tromethamine 15 Mg/Ml Vial) 15 mg IV Q6H PRN PRN Reason: Pain Stop: 04/02/21 20:27 Last Admin: 03/29/21 16:29 Dose: 15 mg Documented by: Miscellaneous Information (Piperacill/Tazobac Consult Active) 1 ea N/A UD PRN PRN Reason: Consult Stop: 04/25/21 22:24 Oxycodone/Acetaminophen (Oxycodone/Acetaminophen 5mg/325mg Tab) 1 tab PO Q4H PRN PRN Reason: MODERATE PAIN Stop: 04/11/21 13:43 Last Admin: 03/30/21 12:02 Dose: 1 tab Documented by: Oxycodone/Acetaminophen (Oxycodone/Acetaminophen 5mg/325mg Tab) 2 tab PO Q4H PRN PRN Reason: Severe Pain Stop: 04/11/21 13:43 Last Admin: 03/29/21 11:18 Dose: 2 tab Documented by: Rosuvastatin Calcium (Rosuvastatin Calcium 10 Mg Tab) 10 mg PO DAILY [facility] Stop: 04/28/21 08:59 Last Admin: 03/30/21 08:48 Dose: 10 mg Documented by: (1) Sepsis Sepsis acute organ dysfunction status: unspecified Sepsis type: sepsis due to unspecified organism Qualified Code(s): A41.9 - Sepsis, unspecified organism
[2021-03-31] MEDS: ACETAMINOPHEN 1,000 MG/100 ML VIAL IV SCH ×2 (05:39→14:40)
[2021-03-31 06:53] LABS: Basophils # (auto) 0.02 K/uL (0-0.2); Basophils % (auto) 0.4 %; Hemoglobin 11.8 g/dL (14.0-18.0); Immature Granulocytes # (auto) 0.02 K/uL (0.00-0.02); Immature Granulocytes % (auto) 0.4 %; Lymphocytes # (auto) 1.41 K/uL (1.2-3.4); Lymphocytes % (auto) 27.9 %; Mean Corpuscular Hemoglobin 28.2 pg (25-34); Mean Corpuscular Hgb Conc 32.8 g/dL (32-36); Mean Corpuscular Volume 85.9 fL (80-100); Mean Platelet Volume 9.4 fL (7.4-10.4); Monocytes # (auto) 0.49 K/uL (0.11-0.59); Monocytes % (auto) 9.7 %; Neutrophils # (auto) 2.91 K/uL (1.4-6.5); Neutrophils % (auto) 57.6 %; Platelet Count 296 K/uL (130-400); RDW Coefficient of Variation 13.6 % (11.5-14.5); RDW Standard Deviation 42.9 fL (36.4-46.3); Red Blood Count 4.19 M/uL (4.7-6.1); White Blood Count 5.05 K/uL (4.8-10.8)
[2021-03-31 07:25] LABS: BUN Creatinine Ratio 13.9 (10-20); Calcium 8.3 mg/dl (8.5-10.1); Creatinine Clr Calc Pharmacy 179.7 ml/min; Est GFR (African American) 135.4 ml/min; Est GFR (Non-African American) 116.8 ml/min; Potassium 3.5 mmol/L (3.5-5.1)
[2021-03-31] MEDS: HEPARIN SOD 5,000 UNIT/0.5 ML VIAL SQ SCH ×2 (08:29→20:04)
[2021-03-31] MEDS: ROSUVASTATIN CALCIUM 10 MG TAB PO SCH (08:29)
[2021-03-31] MEDS: PANTOprazole 40 MG in SYRINGE 0 ML IV SCH ×2 (08:29→20:03)
--- NOTE | 2021-03-31 12:11 | Surgery Progress Note ---
Date of Service F/U S/P resection sigmoid colon, colostomy, POD 5, pt is doing fine, colostomy is working, no fever, tolerated diet, no abdominal pain, March 31, 2021 Assessment & Plan (1) Peritonitis, acute generalized: pt is a 40 year-old male who presents wto ER with 2 weeks history RLQ p ain, IMP: peritonitis, perforated abdominal viscus, , appendicitis, diverticulitis, intra-abdominal abscess, sepsis Plan, I recommend to do diagnostic laparoscopy, possible appendectomy, explorato ry laparostomy, bowel resection, stoma, D/W benefits, risks and alternatives of the surgery, the risks - infection, bleeding, abscess, sepsis, multiple organs failure, injury other organs, bowel obstruction, DVT, , pt understood, he agrees with the surgery,He signed inform consent, I answered all questions, pre-op antibiotic, 03/27/2021 11:02AM S/P resection sigmoid colon, colostomy, appendectomy, POD 1 doing fine, WBC 11,000, pt can be transfer to med/surg floor, keep NPO, and NG-tube continue iv antibiotic repeta labs in morning, will F/U, Thanks ICU and hospitalist involved pt care 03/28/2021 1:02PM S/P resection sigmoid colon, colostomy, appendectomy, POD 2 doing fine, pull out NG, clear diet tomorrow, continue iv antibiotic repeat labs in morning, will F/U, medical operations supervisor surgeon cover this weekend, 03/31/2021 12:07PM doing better, tolerated diet, colostomy is working, wound care nurse teach pt and his for change bag, possible D/C home tomorrow, will F/U (2) Perforated abdominal viscus: Admission and Anticipated Discharge Date Admission Date: March 26, 2021 Subjective 40-year-old man postop day 3 status post ex lap with sigmoid bowel resection, colostomy creation, and appendectomy by Dr. Campbell. Pain is controlled. Tolerating clears. Flatus/ fecal material into colostomy. Ambulating Review of Systems Constitutional: as per Subjective / HPI Eyes: as per Subjective / HPI Ear, Nose, Mouth, Throat: as per Subjective / HPI Respiratory: as per Subjective / HPI Cardiovascular: as per Subjective / HPI Additional Comments: hyperlipidemia Gastrointestinal: as per Subjective / HPI gastric bypass Genitourinary: + as per Subjective / HPI Musculoskeletal: as per Subjective / HPI Integumentary: as per Subjective / HPI Neurologic: as per Subjective / HPI Psychiatric: as per Subjective / HPI Endocrine: as per Subjective / HPI Hematologic / Lymphatic: as per Subjective / HPI Allergy / Immunological: as per Subjective / HPI Physical Exam Constitutional: WD/WN, vitals as above well developed and well nourished Eyes: PERRL, conjunctivae normal, anicteric sclerae ENMT: external ear and nose normal, oropharynx normal Neck: trachea midline, no thyromegaly Respiratory: normal respiratory effort, lungs clear to auscultation normal respiratory effort Cardiovascular: RRR, no murmur, no edema Rate/Rhythm: regular rate, regular rhythm and + tachycardic Heart Sounds: normal S1 and normal S2 Gastrointestinal (Abdomen): normal bowel sounds, soft, nontender, no hepatosplenomegaly Inspection/Auscultation: abdomen normal to inspection Percussion/Palpation: abdomen soft the incision intact, no redness, no drainage, colostomy is working, some stool in the bag, Musculoskeletal: no cyanosis or clubbing, extremities motor strength 5/5 Skin: no rashes, warm and dry Neurologic: awake Psychiatric: Orientation: alert and oriented x 3 Results & Data ([facility]) Vital Signs (Past 12 Hours) Vital Signs Temp Pulse Resp BP Pulse Ox 03/31/21 07:11 36.7 C 67 16 138/88 95 Laboratory Results Abnormal lab results 03/31/21 03/31/21 Range/Units 06:27 06:27 RBC 4.19 L (4.7-6.1) M/uL Hgb 11.8 L (14.0-18.0) g/dL Hct 36.0 L (42-52) % Calcium 8.3 L (8.5-10.1) mg/dl
--- NOTE | 2021-03-31 21:43 | Hospitalist Progress Note ---
Date of Service March 31, 2021 Assessment & Plan (1) Sepsis: Presented with a developing sepsis picture, resuscitated with source control (surgery). Received Zosyn for 5 days post op per ID recommendations and is doing well clinically. (2) Perforated abdominal viscus: 40-year-old male who presented with sepsis secondary to peritonitis secondary to perforated sigmoid diverticulitis, appendicitis, and intra- abdominal abscess is postop day 4 status post ex lap with appendectomy, sigmoid colon resection and colostomy creation. NG tube has been removed. Advance diet per surgery. Pain is controlled. (3) Diverticulitis: Status post colon resection with colostomy as above. Continue ostomy care and pain meds as needed. (4) Hyperglycemia: Initially had some hyperglycemia. A1c was screened and 5.8. Patient is not a diabetic. Stopped all blood sugar checks and insulin coverage (5) Hyperlipidemia: cont crestor per home regimen. (6) DVT prophylaxis: Lovenox Full code Dispo-ambulating well wt PT. DC to home when ok with surgery. Thank you for this consultation. We will continue to follow the patient's progress throughout the hospital stay. Jennifer Manrique DO [facility] Hospitalist Admission and Anticipated Discharge Date Admission Date: March 26, 2021 Subjective 40-year-old man postop day 4 status post ex lap with sigmoid bowel resection, colostomy creation, and appendectomy by Dr. Campbell. Pain is controlled. Tolerating regular food. Flatus/ fecal material into colostomy. Ambulating Review of Systems Review of Systems: All systems reviewed & are unremarkable except as noted in Subjective Physical Exam Physical Exam: CONSTITUTIONAL: obese, vitals as above, generally well- appearing EYES: normal conjunctivae, no scleral icterus ENT: external ear and nose normal RESPIRATORY: clear to auscultation bilaterally, no crackles, rales or wheezes, normal respiratory effort CARDIOVASCULAR: regular rate and rhythm, S1 and 2 heard without murmurs, gallops or rubs, no JVD, no peripheral edema GASTROINTESTINAL: soft, nontender, nondistended, colostomy in place-fecal material in place, small incision present that is covered [facility] bandage c/d/i MUSCULOSKELETAL: strength 5/5 throughout, head is normocephalic and atraumatic SKIN: warm and dry, appears slightly sunburned on face and shoulders. NEUROLOGIC: CN 2-12 grossly intact, no sensory deficit, normal cognition, normal speech, no gross focal deficits. PSYCHIATRIC: alert cooperative and oriented to person, place and time. Results & Data Results & Data ([facility]) Vital Signs (Past 12 Hours) Vital Signs Temp Pulse Resp BP Pulse Ox 03/31/21 15:28 37.1 C 76 16 131/88 96 Laboratory Results Short CBC 03/31/21 Range/Units 06:27 WBC 5.05 (4.8-10.8) K/uL Hgb 11.8 L (14.0-18.0) g/dL Hct 36.0 L (42-52) % Plt Count 296 (130-400) K/uL BMP 03/31/21 06:27 Sodium 138 Potassium 3.5 Chloride 106 Carbon Dioxide 26 BUN 10 Creatinine 0.73 Glucose 94 Calcium 8.3 L Medications Administered Current Inpatient Medications Acetaminophen (Acetaminophen 325 Mg Tab) 650 mg PO Q4H PRN PRN Reason: Mild Pain Stop: 04/27/21 13:43 Heparin Sodium (Porcine) (Heparin Sod 5,000 Unit/0.5 Ml Vial) 5,000 units SQ Q12 [facility] Stop: 04/28/21 08:59 Last Admin: 03/31/21 20:04 Dose: 5,000 units Documented by: Pantoprazole Sodium 40 mg/ (Syringe) 10 mls @ 5 mls/min IV BID AVANI Stop: 04/26/21 08:59 Last Admin: 03/31/21 20:03 Dose: 5 mls/min Documented by: Promethazine HCl 12.5 mg/ (Sodium Chloride) 50.5 mls @ 202 mls/hr IV Q6H PRN PRN Reason: Nausea And Vomiting Stop: 04/25/21 23:48 Lorazepam (Ativan) 0.5 mg in 1 mls @ 1 mls/min IV Q4H PRN PRN Reason: Anxiety/Agitation Stop: 04/25/21 23:48 Ketorolac Tromethamine (Ketorolac Tromethamine 15 Mg/Ml Vial) 15 mg IV Q6H PRN PRN Reason: Pain Stop: 04/02/21 20:27 Last Admin: 03/29/21 16:29 Dose: 15 mg Documented by: Oxycodone/Acetaminophen (Oxycodone/Acetaminophen 5mg/325mg Tab) 1 tab PO Q4H PRN PRN Reason: MODERATE PAIN Stop: 04/11/21 13:43 Last Admin: 03/30/21 12:02 Dose: 1 tab Documented by: Oxycodone/Acetaminophen (Oxycodone/Acetaminophen 5mg/325mg Tab) 2 tab PO Q4H PRN PRN Reason: Severe Pain Stop: 04/11/21 13:43 Last Admin: 03/29/21 11:18 Dose: 2 tab Documented by: Rosuvastatin Calcium (Rosuvastatin Calcium 10 Mg Tab) 10 mg PO DAILY AVANI Stop: 04/28/21 08:59 Last Admin: 03/31/21 08:29 Dose: 10 mg Documented by: (1) Sepsis Sepsis acute organ dysfunction status: unspecified Sepsis type: sepsis due to unspecified organism Qualified Code(s): A41.9 - Sepsis, unspecified organism
[2021-04-01] MEDS: PANTOprazole 40 MG in SYRINGE 0 ML IV SCH ×2 (09:53→20:34)
[2021-04-01] MEDS: HEPARIN SOD 5,000 UNIT/0.5 ML VIAL SQ SCH ×2 (09:53→20:34)
[2021-04-01] MEDS: ROSUVASTATIN CALCIUM 10 MG TAB PO SCH (09:53)
[2021-04-01] MEDS ORDERED: PIPERACILL/TAZOBAC CONSULT ACTIVE PRN (12:16)
[2021-04-01] MEDS ORDERED: PIPERACILLIN/TAZOBACTAM 3.375 GM in DEXTROSE 5% 100 ML IV SCH (12:30)
[2021-04-01] MEDS ORDERED: PIPERACILLIN/TAZOBACTAM 4.5 GM in DEXTROSE 5% 100 ML IV ONE (12:30)
--- NOTE | 2021-04-01 13:14 | Surgery Progress Note ---
Date of Service doing fine, no abdominal pain, tolerated diet, colostomy is working, FLOWER 40ml clear April 01, 2021 Assessment & Plan (1) Peritonitis, acute generalized: pt is a 40 year-old male who presents wto ER with 2 weeks history RLQ pain, IMP: peritonitis, perforated abdominal viscus, , appendicitis, diverticulitis, intra-abdominal abscess, sepsis Plan, I recommend to do diagnostic laparoscopy, possible appendectomy, exploratory laparostomy, bowel resection, stoma, D/W benefits, risks and alternatives of the surgery, the risks - infection, bleeding, abscess, sepsis, multiple organs failure, injury other organs, bowel obstruction, DVT, , pt understood, he agrees with the surgery,He signed inform consent, I answered all questions, pre-op antibiotic, 03/27/2021 11:02AM S/P resection sigmoid colon, colostomy, appendectomy, POD 1 doing fine, WBC 11,000, pt can be transfer to med/surg floor, keep NPO, and NG-tube continue iv antibiotic repeta labs in morning, will F/U, Thanks ICU and hospitalist involved pt care 03/28/2021 1:02PM S/P resection sigmoid colon, colostomy, appendectomy, POD 2 doing fine, pull out NG, clear diet tomorrow, continue iv antibiotic repeat labs in morning, will F/U, 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 Campbell. Pain is controlled. Tolerating regular food. Flatus/ fecal material into colostomy. Ambulating Review of Systems Constitutional: as per Subjective / HPI Eyes: as per Subjective / HPI Ear, Nose, Mouth, Throat: as per Subjective / HPI Respiratory: as per Subjective / HPI Cardiovascular: as per Subjective / HPI Additional Comments: hyperlipidemia Gastrointestinal: as per Subjective / HPI gastric bypass Genitourinary: + as per Subjective / HPI Musculoskeletal: as per Subjective / HPI Integumentary: as per Subjective / HPI Neurologic: as per Subjective / HPI Psychiatric: as per Subjective / HPI Endocrine: as per Subjective / HPI Hematologic / Lymphatic: as per Subjective / HPI Allergy / Immunological: as per Subjective / HPI Physical Exam Constitutional: WD/WN, vitals as above well developed and well nourished Eyes: PERRL, conjunctivae normal, anicteric sclerae ENMT: external ear and nose normal, oropharynx normal Neck: trachea midline, no thyromegaly Respiratory: normal respiratory effort, lungs clear to auscultation normal respiratory effort Cardiovascular: RRR, no murmur, no edema Rate/Rhythm: regular rate, regular rhythm and + tachycardic Heart Sounds: normal S1 and normal S2 Gastrointestinal (Abdomen): normal bowel sounds, soft, nontender, no hepatosplenomegaly Inspection/Auscultation: abdomen normal to inspection Percussion/Palpation: abdomen soft some redness on left side colostomy, no tenderness, the incision heals well, Musculoskeletal: no cyanosis or clubbing, extremities motor strength 5/5 Skin: no rashes, warm and dry Neurologic: awake Psychiatric: Orientation: alert and oriented x 3 Results & Data ([facility]) Vital Signs (Past 12 Hours) Vital Signs Temp Pulse Resp BP Pulse Ox 04/01/21 07:23 37.0 C 84 16 139/96 96
--- NOTE | 2021-04-01 16:49 | Hospitalist Progress Note ---
Date of Service April 01, 2021 Assessment & Plan (1) Sepsis: Presented with a developing sepsis picture, resuscitated with source control (surgery). Received Zosyn for 5 days post op per ID recommendations and is doing well clinically. Zosyn has been continued as of today No more signs of sepsis Clinically much better (2) Perforated abdominal viscus: 40-year-old male who presented with sepsis secondary to peritonitis secondary to perforated sigmoid diverticulitis, appendicitis, and intra- abdominal abscess is postop day 4 status post ex lap with appendectomy, sigmoid colon resection and colostomy creation. NG tube has been removed. Advance diet per surgery. Pain is controlled. Has been tolerating oral diet Colostomy site seems to be intact Development of red rash along the left lower abdomen Could be secondary to antibiotic We will observe (3) Diverticulitis: Status post colon resection with colostomy as above. Continue ostomy care and pain meds as needed. (4) Hyperglycemia: Initially had some hyperglycemia. A1c was screened and 5.8. Patient is not a diabetic. Stopped all blood sugar checks and insulin coverage (5) Hyperlipidemia: cont crestor per home regimen. (6) DVT prophylaxis: Lovenox Full code Dispo-ambulating well [facility] PT. DC to home when ok with surgery. Medically stable Admission and Anticipated Discharge Date Admission Date: March 26, 2021 Subjective 04/01/2021 The patient was seen and examined in medical floor He is status post sigmoid bowel resection and appendectomy on 03/26/2021 Denies any significant abdominal pain Has a new rash involving the left side of the lower abdomen Denies any fever and/or chills Review of Systems Review of Systems: All systems reviewed and are unremarkable except as noted below Physical Exam Physical Exam: Lying in bed comfortably Constitutional: well developed, well nourished, + ill appearing and + obese Eyes: PERRL, conjunctivae normal, anicteric sclerae ENMT: external ear and nose normal, oropharynx normal Neck: trachea midline, no thyromegaly Respiratory: no respiratory distress Auscultation: lungs clear to auscultation bilaterally and + diminished lung sounds Cardiovascular: Rate/Rhythm: regular rate and regular rhythm Heart Sounds: no murmur Extremities: + edema (Trace edema bilaterally) Gastrointestinal (Abdomen): Inspection/Auscultation: normal bowel sounds; + abdomen abnormal to inspection and abdomen not distended Percussion/Palpation: abdomen soft; abdomen nontender Colostomy bag is draining normal stool and the site seems to be intact. Still has surgical drainage involving that area Musculoskeletal: No acute arthritis involving any joint Psychiatric: A+Ox3, euthymic affect Lymphatic: no cervical or axillary lymphadenopathy Results & Data Results & Data ([facility]) Vital Signs (Past 12 Hours) Vital Signs Temp Pulse Resp BP Pulse Ox 04/01/21 15:30 36.7 C 83 16 129/87 97 04/01/21 07:23 37.0 C 84 16 139/96 96 Medications Administered Current Inpatient Medications Acetaminophen (Acetaminophen 325 Mg Tab) 650 mg PO Q4H PRN PRN Reason: Mild Pain Stop: 04/27/21 13:43 Heparin Sodium (Porcine) (Heparin Sod 5,000 Unit/0.5 Ml Vial) 5,000 units SQ Q12 [facility] Stop: 04/28/21 08:59 Last Admin: 04/01/21 09:53 Dose: 5,000 units Documented by: Pantoprazole Sodium 40 mg/ (Syringe) 10 mls @ 5 mls/min IV BID AVANI Stop: 04/26/21 08:59 Last Admin: 04/01/21 09:53 Dose: 5 mls/min Documented by: Promethazine HCl 12.5 mg/ (Sodium Chloride) 50.5 mls @ 202 mls/hr IV Q6H PRN PRN Reason: Nausea And Vomiting Stop: 04/25/21 23:48 Lorazepam (Ativan) 0.5 mg in 1 mls @ 1 mls/min IV Q4H PRN PRN Reason: Anxiety/Agitation Stop: 04/25/21 23:48 Piperacillin Sod/Tazobactam (Sod 4.5 gm/ Dextrose) 120 mls @ 30 mls/hr IV Q8H AVANI; Protocol Stop: 04/11/21 17:59 Ketorolac Tromethamine (Ketorolac Tromethamine 15 Mg/Ml Vial) 15 mg IV Q6H PRN PRN Reason: Pain Stop: 04/02/21 20:27 Last Admin: 03/29/21 16:29 Dose: 15 mg Documented by: Miscellaneous Information (Piperacill/Tazobac Consult Active) 1 ea N/A UD PRN PRN Reason: Consult Stop: 05/01/21 12:15 Oxycodone/Acetaminophen (Oxycodone/Acetaminophen 5mg/325mg Tab) 1 tab PO Q4H PRN PRN Reason: MODERATE PAIN Stop: 04/11/21 13:43 Last Admin: 03/30/21 12:02 Dose: 1 tab Documented by: Oxycodone/Acetaminophen (Oxycodone/Acetaminophen 5mg/325mg Tab) 2 tab PO Q4H PRN PRN Reason: Severe Pain Stop: 04/11/21 13:43 Last Admin: 03/29/21 11:18 Dose: 2 tab Documented by: Rosuvastatin Calcium (Rosuvastatin Calcium 10 Mg Tab) 10 mg PO DAILY [facility] Stop: 04/28/21 08:59 Last Admin: 04/01/21 09:53 Dose: 10 mg Documented by: (1) Sepsis Sepsis acute organ dysfunction status: unspecified Sepsis type: sepsis due to unspecified organism Qualified Code(s): A41.9 - Sepsis, unspecified organism
[2021-04-01] MEDS: PIPERACILLIN/TAZOBACTAM 4.5 GM in DEXTROSE 5% 100 ML IV SCH (17:43)
[2021-04-02] MEDS: PIPERACILLIN/TAZOBACTAM 4.5 GM in DEXTROSE 5% 100 ML IV SCH ×2 (01:49→10:03)
[2021-04-02 06:33] LABS: Basophils # (auto) 0.04 K/uL (0-0.2); Basophils % (auto) 0.6 %; Eosinophils # (auto) 0.26 K/uL (0-0.5); Eosinophils % (auto) 3.7 %; Hematocrit (blood only) 38.6 % (42-52); Hemoglobin 12.4 g/dL (14.0-18.0); Immature Granulocytes # (auto) 0.02 K/uL (0.00-0.02); Immature Granulocytes % (auto) 0.3 %; Lymphocytes # (auto) 3.16 K/uL (1.2-3.4); Lymphocytes % (auto) 45.5 %; Mean Corpuscular Hemoglobin 28.4 pg (25-34); Mean Corpuscular Hgb Conc 32.1 g/dL (32-36); Mean Corpuscular Volume 88.3 fL (80-100); Mean Platelet Volume 9.4 fL (7.4-10.4); Monocytes % (auto) 11.5 %; Neutrophils # (auto) 2.66 K/uL (1.4-6.5); Neutrophils % (auto) 38.4 %; Platelet Count 323 K/uL (130-400); RDW Coefficient of Variation 13.7 % (11.5-14.5); RDW Standard Deviation 44.7 fL (36.4-46.3); Red Blood Count 4.37 M/uL (4.7-6.1); White Blood Count 6.94 K/uL (4.8-10.8)
[2021-04-02 07:14] LABS: Albumin Level 2.1 gm/dl (3.4-5.0); BUN Creatinine Ratio 10.7 (10-20); Calcium 8.6 mg/dl (8.5-10.1); Creatinine Clr Calc Pharmacy 156.1 ml/min; Est GFR (African American) 127.8 ml/min; Est GFR (Non-African American) 110.3 ml/min; Potassium 4.1 mmol/L (3.5-5.1)
[2021-04-02 07:24] LABS: Albumin Globulin Ratio 0.5 (0.9-2); Bilirubin,Total 0.5 mg/dl (0.2-1); Globulin 4.4 gm/dl (2.5-4.0); Total Protein 6.5 gm/dl (6.4-8.2)
[2021-04-02] MEDS: PANTOprazole 40 MG in SYRINGE 0 ML IV SCH (08:33)
[2021-04-02] MEDS: ROSUVASTATIN CALCIUM 10 MG TAB PO SCH (08:33)
[2021-04-02] MEDS: HEPARIN SOD 5,000 UNIT/0.5 ML VIAL SQ SCH (08:33)
--- NOTE | 2021-04-02 10:39 | Surgery Progress Note ---
Date of Service pt is doing fine, tolerated diet, no fever, April 02, 2021 Assessment & Plan (1) Peritonitis, acute generalized: pt is a 40 year-old male who presents wto ER with 2 weeks history RLQ pain, IMP: peritonitis, perforated abdominal viscus, , appendicitis, diverticulitis, intra-abdominal abscess, sepsis Plan, I recommend to do diagnostic laparoscopy, possible appendectomy, exploratory laparostomy, bowel resection, stoma, D/W benefits, risks and alternatives of the surgery, the risks - infection, bleeding, abscess, sepsis, multiple organs failure, injury other organs, bowel obstruction, DVT, , pt understood, he agrees with the surgery,He signed inform consent, I answered all questions, pre-op antibiotic, 03/27/2021 11:02AM S/P resection sigmoid colon, colostomy, appendectomy, POD 1 doing fine, WBC 11,000, pt can be transfer to med/surg floor, keep NPO, and NG-tube continue iv antibiotic repeta labs in morning, will F/U, Thanks ICU and hospitalist involved pt care 03/28/2021 1:02PM S/P resection sigmoid colon, colostomy, appendectomy, POD 2 doing fine, pull out NG, clear diet tomorrow, continue iv antibiotic repeat labs in morning, will F/U, contract specialist surgeon cover this weekend, 03/31/2021 12:07PM doing better, tolerated diet, colostomy is working, wound care nurse teach pt and his for change bag, possible D/C home tomorrow, will F/U 04/01/2021, doing fine, some redness on left side colostomy, no tenderness, start zosyn 3,375gm iv q8h may d/c home tomorrow, 04/02/2021 10: 41AM, I update about pathology report to pt, pt understood, doing fine, no more redness at colostomy site, D/C home today, post op instruction was given, F/U me on 04/08/2021, (2) Perforated abdominal viscus: Admission and Anticipated Discharge Date Admission Date: March 26, 2021 Subjective 04/01/2021 The patient was seen and examined in medical floor He is status post sigmoid bowel resection and appendectomy on 03/26/2021 Denies any significant abdominal pain Has a new rash involving the left side of the lower abdomen Denies any fever and/or chills Review of Systems Constitutional: as per Subjective / HPI Eyes: as per Subjective / HPI Ear, Nose, Mouth, Throat: as per Subjective / HPI Respiratory: as per Subjective / HPI Cardiovascular: as per Subjective / HPI Additional Comments: hyperlipidemia Gastrointestinal: as per Subjective / HPI gastric bypass Genitourinary: + as per Subjective / HPI Musculoskeletal: as per Subjective / HPI Integumentary: as per Subjective / HPI Neurologic: as per Subjective / HPI Psychiatric: as per Subjective / HPI Endocrine: as per Subjective / HPI Hematologic / Lymphatic: as per Subjective / HPI Allergy / Immunological: as per Subjective / HPI Physical Exam Constitutional: WD/WN, vitals as above well developed and well nourished Eyes: PERRL, conjunctivae normal, anicteric sclerae ENMT: external ear and nose normal, oropharynx normal Neck: trachea midline, no thyromegaly Respiratory: normal respiratory effort, lungs clear to auscultation normal respiratory effort Cardiovascular: RRR, no murmur, no edema Rate/Rhythm: regular rate, regular rhythm and + tachycardic Heart Sounds: normal S1 and normal S2 Gastrointestinal (Abdomen): normal bowel sounds, soft, nontender, no hepatosplenomegaly Inspection/Auscultation: abdomen normal to inspection Percussion/Palpation: abdomen soft no redness at colostomy site, NT, ND, the incision heals well, colostomy is working some stool in bag, Musculoskeletal: no cyanosis or clubbing, extremities motor strength 5/5 Skin: no rashes, warm and dry Neurologic: awake Psychiatric: Orientation: alert and oriented x 3 Results & Data ([facility]) Vital Signs (Past 12 Hours) Vital Signs Temp Pulse Resp BP Pulse Ox 04/02/21 07:12 36.6 C 75 16 126/85 96
--- NOTE | 2021-04-02 11:29 | Discharge Summary (DS) ---
DATE OF DISCHARGE: 04/02/2021. ADMITTING DIAGNOSES: Perforated diverticulitis based abscess, acute appendicitis. DISCHARGE DIAGNOSES: Diverticulitis sigmoid colon with abscess, appendicitis. OPERATION: Exploratory laparotomy, resection of sigmoid colon, colostomy, appendectomy. SURGEON: Pablito Campbell MD. DETAILS OF DISCHARGE SUMMARY: This is a 40-year-old gentleman who presented to the ED with acute abdo alex pain. The patient had a CT scan with diagnosis of perforated bowel with diverticulitis or poss ible appendix. We took the patient to the OR on 03/26/2021 for exploratory laparotomy. In the OR, w e found the patient had inflammation around the appendix. We did an appendectomy and also we found t he patient had a perforated sigmoid colon with diverticulitis with abscess. We did a sigmoid colon r esection to create a temporary colostomy and put in two FLOWER drainage. The patient tolerated the proce dure well. OPERATIVE PROCEDURE: Patient was transferred to the ICU in stable condition, stayed in the ICU one d ay and the next day, the patient was transferred to the regular floor. Patient doing fine. Later on when the patient's colostomy was working, we gave the patient clear diet, patient tolerated a clear diet and after 2 days, we gave the patient a regular diet. The patient tolerated diet. Colostomy wa s working. No fever, no abdominal pain, no nausea, no vomiting. PHYSICAL EXAMINATION: VITAL SIGNS: Temperature is 36.6, heart rate 75, respiratory rate of 16, blood pressure 126/85, O2 s aturation 96% on room air. GENERAL: Patient is alert, awake, oriented x3. HEENT: No more limitation. NEUROLOGIC: Exam is intact. NECK: No JVD. CHEST: Bilateral lung sounds clear. HEART: Normal S1, S2. No murmur. ABDOMEN: Soft, no distention. The incision is intact. No redness, no drainage. Colostomy working fine. There is some stool in the bag. No redness, no tenderness around the colostomy. Bowel sounds positive. EXTREMITIES: No edema. The patient wanted to go home today. We gave the patient postoperative care instruction. I will fol low up the patient again next week on 04/08/2021, the patient understands. Job ID: [id number]
--- NOTE | 2021-04-02 13:04 | Hospitalist Progress Note ---
Date of Service April 02, 2021 Assessment & Plan (1) Sepsis: Presented with a developing sepsis picture, resuscitated with source control (surgery). Received Zosyn for 5 days post op per ID recommendations and is doing well clinically. Zosyn has been continued as of today No more signs of sepsis Clinically much better -denies any more symptoms Medically stable to be discharged (2) Perforated abdominal viscus: 40-year-old male who presented with sepsis secondary to peritonitis secondary to perforated sigmoid diverticulitis, appendicitis, and intra- abdominal abscess is postop day 4 status post ex lap with appendectomy, sigmoid colon resection and colostomy creation. NG tube has been removed. Advance diet per surgery. Pain is controlled. Has been tolerating oral diet Colostomy site seems to be intact Development of red rash along the left lower abdomen Could be secondary to antibiotic The rash cleared Antibiotic course is done (3) Diverticulitis: Status post colon resection with colostomy as above. Continue ostomy care and pain meds as needed. No signs or symptoms of diverticulitis (4) Hyperglycemia: Initially had some hyperglycemia. A1c was screened and 5.8. Patient is not a diabetic. Stopped all blood sugar checks and insulin coverage (5) Hyperlipidemia: cont crestor per home regimen. (6) DVT prophylaxis: Lovenox Full code Dispo-ambulating well wtih PT. DC to home when ok with surgery. Medically stable Admission and Anticipated Discharge Date Admission Date: March 26, 2021 Subjective 04/01/2021 The patient was seen and examined in medical floor He is status post sigmoid bowel resection and appendectomy on 03/26/2021 Denies any significant abdominal pain Has a new rash involving the left side of the lower abdomen Denies any fever and/or chills 04/02/2021 The patient was seen and examined in medical floor He has been feeling much better and the rash in the right lower abdomen has disappeared Denies any significant abdominal pain and the drainage is still draining minimal serosanguineous fluid Review of Systems Review of Systems: All systems reviewed and are unremarkable except as noted below Physical Exam Physical Exam: Lying in bed comfortably Constitutional: well developed, well nourished and + obese; not ill appearing Eyes: PERRL, conjunctivae normal, anicteric sclerae ENMT: external ear and nose normal, oropharynx normal Neck: trachea midline, no thyromegaly Respiratory: no respiratory distress Auscultation: lungs clear to auscultation bilaterally and + diminished lung sounds Cardiovascular: Rate/Rhythm: regular rate and regular rhythm Heart Sounds: no murmur Extremities: + edema (Trace edema bilaterally) Gastrointestinal (Abdomen): Inspection/Auscultation: normal bowel sounds; + abdomen abnormal to inspection and abdomen not distended Per cussion/Palpation: abdomen soft; abdomen nontender Musculoskeletal: No acute arthritis in any joint Neurologic: Alert, awake and oriented x3. No focal sensory or motor deficit appreciated Psychiatric: A+Ox3, euthymic affect Lymphatic: no cervical or axillary lymphadenopathy Results & Data Results & Data ([facility]) Vital Signs (Past 12 Hours) Vital Signs Temp Pulse Pulse Resp BP Pulse Ox 04/02/21 10:59 36.6 C 75 75 16 126/85 96 04/02/21 07:12 36.6 C 75 16 126/85 96 Laboratory Results Short CBC 04/02/21 Range/Units 06:06 WBC 6.94 (4.8-10.8) K/uL Hgb 12.4 L (14.0-18.0) g/dL Hct 38.6 L (42-52) % Plt Count 323 (130-400) K/uL BMP 04/02/21 06:06 Sodium 138 Potassium 4.1 D Chloride 106 Carbon Dioxide 29 BUN 9 Creatinine 0.84 Glucose 90 Calcium 8.6 Liver Function 04/02/21 Range/Units 06:06 Total Bilirubin 0.5 (0.2-1) mg/dl AST 173 H (15-37) U/L ALT 131 H (12-78) U/L Alkaline Phosphatase 62 (45-117) U/L Albumin 2.1 L (3.4-5.0) gm/dl Medications Administered Current Inpatient Medications Acetaminophen (Acetaminophen 325 Mg Tab) 650 mg PO Q4H PRN PRN Reason: Mild Pain Stop: 04/27/21 13:43 Heparin Sodium (Porcine) (Heparin Sod 5,000 Unit/0.5 Ml Vial) 5,000 units SQ Q12 AVANI Stop: 04/28/21 08:59 Last Admin: 04/02/21 08:33 Dose: 5,000 units Documented by: Pantoprazole Sodium 40 mg/ (Syringe) 10 mls @ 5 mls/min IV BID AVANI Stop: 04/26/21 08:59 Last Admin: 04/02/21 08:33 Dose: 5 mls/min Documented by: Promethazine HCl 12.5 mg/ (Sodium Chloride) 50.5 mls @ 202 mls/hr IV Q6H PRN PRN Reason: Nausea And Vomiting Stop: 04/25/21 23:48 Lorazepam (Ativan) 0.5 mg in 1 mls @ 1 mls/min IV Q4H PRN PRN Reason: Anxiety/Agitation Stop: 04/25/21 23:48 Piperacillin Sod/Tazobactam (Sod 4.5 gm/ Dextrose) 120 mls @ 30 mls/hr IV Q8H AVANI; Protocol Stop: 04/11/21 17:59 Last Admin: 04/02/21 10:03 Dose: 30 mls/hr Documented by: Ketorolac Tromethamine (Ketorolac Tromethamine 15 Mg/Ml Vial) 15 mg IV Q6H PRN PRN Reason: Pain Stop: 04/02/21 20:27 Last Admin: 03/29/21 16:29 Dose: 15 mg Documented by: Miscellaneous Information (Piperacill/Tazobac Consult Active) 1 ea N/A UD PRN PRN Reason: Consult Stop: 05/01/21 12:15 Oxycodone/Acetaminophen (Oxycodone/Acetaminophen 5mg/325mg Tab) 1 tab PO Q4H PRN PRN Reason: MODERATE PAIN Stop: 04/11/21 13:43 Last Admin: 03/30/21 12:02 Dose: 1 tab Documented by: Oxycodone/Acetaminophen (Oxycodone/Acetaminophen 5mg/325mg Tab) 2 tab PO Q4H PRN PRN Reason: Severe Pain Stop: 04/11/21 13:43 Last Admin: 03/29/21 11:18 Dose: 2 tab Documented by: Rosuvastatin Calcium (Rosuvastatin Calcium 10 Mg Tab) 10 mg PO DAILY AVANI Stop: 04/28/21 08:59 Last Admin: 04/02/21 08:33 Dose: 10 mg Documented by: (1) Sepsis Sepsis acute organ dysfunction status: unspecified Sepsis type: sepsis due to unspecified organism Qualified Code(s): A41.9 - Sepsis, unspecified organism
== END 2021-04-02 14:45 | disposition home health service (06) | DRG 853 ==
LOC: ED 12:34 → OR 16:05 → 3N 16:05 → 1E 21:34 → 2S 03-27 13:33 → 3N 03-28 16:29